=== PATIENT | male | born 1985 | race Hispanic/Latino ===

== ENCOUNTER 2023-02-04 14:20 | Inpatient (IN) | payer SELFPAY ==
[2023-02-04] VITALS (19 sets, daily range): BP systolic 117–165; BP diastolic 74–107; PULSE 116–145; RESP 18–31; TEMP 36.2–37.7; O2SAT 92–99; BMI 27.2; BMI 27.1
--- NOTE | 2023-02-04 14:25 | ED.VIS.GI ---
HPI HPI - GI History of Present Illness Chief Complaint: GI Bleed Detail of Chief Complaint: Upper GI bleed Informant: patient Narrative Narrative: Patient presents the emergency department with vomiting since last evening. Patient has vomited multiple times since then and has had blood. He complains of upper abdominal pain. He denies chest pain. He denies shortness of breath. He is never had this happen before. Patient speaks poor Uzbek. He is Iranian-speaking. No known allergies. Prior similar symptoms: No PFSH PFSH Medical History Alcohol abuse Non-smoker Medical History no medical history Home Medications NK 02/04/23 [History Last Taken Unknown] Allergy/AdvReac Type Severity Reaction Status Date / Time No Known Allergies Allergy Verified 02/04/23 14:23 Family History no significant family his Surgical History no surgical history Social History Smoking Status: Never smoker ROS ROS ED Review of Systems ROS Unobtainable: other Constitutional Constitutional ED: Reports lethargy; Denies chills, fever(s), sweats or weight loss Eyes Eyes: Denies blurry vision, change in vision or diplopia ENT ENT ED: Denies rhinorrhea or sore throat Cardiovascular Cardiovascular: Denies chest pain, orthopnea or racing heartbeat Respiratory/Chest Respiratory/Chest: Denies cough, dyspnea, dyspnea on exertion, orthopnea or sputum Gastrointestinal Gastrointestinal: Reports abdominal pain, nausea, vomiting and other Details: Hematemesis ; Denies diarrhea Genitourinary Genitourinary ED: Denies dysuria, hematuria or urinary frequency Musculoskeletal Musculoskeletal: Denies arthralgias, back pain, myalgias or neck pain Integumentary Denies abscess, Abrasions or rash Neurologic Neurologic: Denies headache(s) or weakness Psychiatric Psychiatric: Denies anxiety, depression or suicidal thoughts Endocrine Endocrinology: Denies polydipsia, polyphagia or polyuria Hematologic/Lymphatic Hematologic/Lymphatic: Denies easy bleeding, easy bruising or lymphadenopathy Allergic/Immunologic Allergic/Immunologic ED: Denies mouth swelling, tongue swelling or urticaria EXAM Physical Exam Const Vital Signs: 02/04/23 14:21 02/04/23 14:23 02/04/23 15:04 Temperature 97.2 F L 97.5 F L Temperature Source Temporal Temporal Pulse Rate 145 H 142 H 139 H Respiratory Rate 28 H 31 H 19 H Blood Pressure 159/95 H 159/95 H 134/107 H Blood Pressure Mean 116 116 116 Pulse Ox 98 98 97 Oxygen Delivery Method Room Air Room Air Room Air 02/04/23 15:26 Temperature Temperature Source Pulse Rate 135 H Respiratory Rate 20 H Blood Pressure 150/74 H Blood Pressure Mean 99 Pulse Ox 92 Oxygen Delivery Method Room Air Positive well nourished and well developed General Appearance ED: well developed and NAD HEENT Reports TM's clear and moist mucous membranes normocephalic and atraumatic; Negative for trauma or tenderness Tympanic Membrane ED: Yes TM's clear Eyes PERRL and EOMs intact bilaterally General Eye ED: Negative for pale conjunctiva or scleral icterus Neck no lymphadenopathy, supple and no JVD General: Negative for tenderness Chest Wall inspection of chest normal and palpation of chest normal Chest: Negative for tenderness Resp normal respiratory effort and clear to auscultation bilaterally Effort and Inspection: Negative for respiratory distress or pain with movement Auscultation: Negative for rhonchi, wheezes or diminished lung sounds Cardio regular rhythm, S1 normal heart sound, S2 normal heart sound and no murmurs Rate: tachycardic Peripheral Pulses: pulses 2+ throughout GI normal to inspection, nondistended, normoactive bowel sounds, soft to palpation, non-distended and no masses GI Narrative: Tenderness palpation over the epigastric region with guarding. There is no rebound, rigidity, or pedal signs. Back/Spine no CVA tenderness and no thoracic nor lumbar tenderness Extremity normal to inspection General Extremety ED: Negative for edema General Extremity: Negative for edema Neuro oriented x3, CN's II-XII intact bilaterally, no sensory deficits noted and gait normal Sensorium / Orientation: awake, alert, oriented to person, oriented to place and oriented to time Motor Exam: strength 5/5 throughout and strength abnormal Psych mental status grossly normal Skin no rashes or lesions noted and no wounds MDM MDM MDM Narrative Medical decision making narrative: Presents with hematemesis since yesterday. Clinically patient looks somewhat de leon and he is tachycardic. 2 large-bore IVs were established. We were able to use the iPad to talk to the patient via medical interpreter. Patient states that the vomiting started first and then the hematemesis. He has no history of stomach ulcers. He does not take frequent NSAIDs. Initially was told we do not have GI on-call. I discussed case with general surgeon on-call Dr. Mullen who recommended attempting to contact GI or transfer of the patient to another facility that he has GI coverage. We attempted to contact Dr. Stephens and I spoke with his nurse practitioner who did say that he was on-call for GI bleed complaints. Dr. Stephens will be available to see the patient. His initial hemoglobin is 9.6. I did order type and cross of 2 units packed red cells given clinically I feel he had significant blood loss. I did also order a CT scan of the abdomen and pelvis without contrast to evaluate further. After further discussion with Dr. Stephens he will take patient to endoscopy suite. CT results of abdomen pelvis pending however Dr. Stephens was able to evaluate the scan. We noted a enlarged liver but no other significant acute process. Official report from radiology pending. Patient case will be discussed with hospitalist to evaluate patient for admission Lab Data Labs: Laboratory Results - last 24 hr 02/04/23 02/04/23 02/04/23 14:23 14:23 14:23 WBC 16.2 H RBC 3.16 L Hgb 9.6 L Hct 29.7 L MCV 94.0 MCH 30.4 MCHC 32.3 RDW Std Deviation 51.8 H RDW Coeff of Jose 15.0 H Plt Count 187 MPV 11.6 Immature Gran % (Auto) 0.600 Neut % (Auto) 84.2 H Lymph % (Auto) 4.8 L Freestone % (Auto) 10.1 H Eos % (Auto) 0.0 Baso % (Auto) 0.3 Absolute Neuts (auto) 13.6 H Absolute Lymphs (auto) 0.78 L Nucleated RBC % 0 Differential Comment SCANNED Diff Path Review May foll PT INR Sodium 141 Potassium 3.6 Chloride 103 Carbon Dioxide 18.0 L Anion Gap 20 H BUN 19 H Creatinine 0.85 Estim Creat Clear Calc 98.67 Est GFR (MDRD) Af Amer 130 Est GFR (MDRD) Non-Af 107 BUN/Creatinine Ratio 22.4 H Glucose 266 H Lactic Acid 11.9 H* Calcium 8.5 Phosphorus Magnesium Total Bilirubin 1.30 H AST 106 H ALT 46 Alkaline Phosphatase 135 H Total Protein 7.3 Albumin 3.3 Globulin 4.0 Albumin/Globulin Ratio 0.8 L Lipase 25 Blood Type Antibody Screen Crossmatch 02/04/23 02/04/23 02/04/23 14:23 14:23 14:23 WBC RBC Hgb Hct MCV MCH MCHC RDW Std Deviation RDW Coeff of Jose Plt Count MPV Immature Gran % (Auto) Neut % (Auto) Lymph % (Auto) Freestone % (Auto) Eos % (Auto) Baso % (Auto) Absolute Neuts (auto) Absolute Lymphs (auto) Nucleated RBC % Differential Comment Diff Path Review PT 16.3 H INR 1.3 Sodium Potassium Chloride Carbon Dioxide Anion Gap BUN Creatinine Estim Creat Clear Calc Est GFR (MDRD) Af Amer Est GFR (MDRD) Non-Af BUN/Creatinine Ratio Glucose Lactic Acid Calcium Phosphorus 2.7 Magnesium 1.5 L Total Bilirubin AST ALT Alkaline Phosphatase Total Protein Albumin Globulin Albumin/Globulin Ratio Lipase Blood Type O POSITIVE Antibody Screen NEGATIVE Crossmatch See Detail Radiography Diagnostic Testing: Clinical Impression(s) from Imaging Studies Chest/Abdomen/Pelvis CT 02/04/23 15:28 IMPRESSION: Enlarged fatty infiltrated liver with other findings consistent with portal hypertension. No evidence for small bowel obstruction. Nonspecific thickening of the treviño of the rectum. No intraluminal contrast extravasation of IV contrast to suggest site for acute GI bleeding at this time. Radionuclide tagged red blood cell study would be helpful for further evaluation if clinically warranted Electronically Signed: Sundar Hernandez MD at 16:58 EDT Reading Location ID and State: [facility] / [place] , Service support , Critical Care Time Critical Care Time: Yes Critical care time (excluding procedures): 30-74 minutes, Discussing w/Patient &/or Family/Delivery Associate, Discussing w/Consultants, Arranging Admission or Transfer, Performing Direct Patient Care at Bedside and - (30 minutes) Discharge Plan Dx/Rx/DC Orders Clinical Impression: Acute upper GI bleeding, Anemia, Tachycardia Disposition Disposition: Acute Care [facility] Discharge Date/Time: 02/04/23 16:55
[2023-02-04] MEDS: Ondansetron 4 MG/2 ML Vial IV ×2 (14:33→19:56)
[2023-02-04] MEDS: 0.9% Normal Saline 1,000 ML 1000 ML IV (14:35)
[2023-02-04] MEDS: Morphine 4 MG/ML Syringe IV (14:35)
[2023-02-04 15:08] LABS: Absolute Lymphocyte Count 0.78 X10^3/uL (0.83-4.51); Absolute Neutrophil Count 13.6 X10^3/uL (2.0-7.7); Basophil# 0.05 X10^3/uL; Basophil% 0.3 % (0-1); Hematocrit 29.7 % (40-54); Hemoglobin 9.6 g/dL (13.0-16.5); Lymphocyte # 0.78 X10^3/ul (0.83-4.51); Lymphocyte % 4.8 % (19-41); Mean Corp Hgb Conc 32.3 g/dL (32-36); Mean Corpuscular Hgb 30.4 pg (27.0-32.0); Mean Platelet Vol. 11.6 fl (6.2-12.0); Monocyte# 1.64 X10^3/uL; Monocyte% 10.1 % (0-10); NRBC Flagged by Analyzer 0 % (0-5); Neutrophil # 13.64 X10^3/uL (2.7-7.7); Neutrophil % 84.2 % (47-70); POSITIVE DIFFERENTIAL YES; Platelet Count 187 K/mm3 (150-450); RBC Distribution Width SD 51.8 fl (35.1-43.9); Red Blood Count 3.16 M/mm3 (4.6-6.2); White Blood Count 16.2 K/mm3 (4.4-11.0)
[2023-02-04 15:09] LABS: Differential Indicated SCAN CRITERIA MET
--- NOTE | 2023-02-04 15:28 | CT_ITS ---
STUDY: CT CHEST, ABDOMEN T PELVIS WITH CONTRAST REASON FOR EXAM: Male, 37 years old. upper gi bleed RADIATION DOSAGE (If Supplied By Facility): CTDIvol = ( 14.79 ) mGy, DLP = ( 1311.36 ) mGycm TECHNIQUE: Transaxial imaging was performed following intravenous administration of IV 100mL Isovue-300. Individualized dose optimization techniques were used for this CT. COMPARISON: No relevant priors. FINDINGS: CHEST The lungs are normal. There is no demonstrated pleural abnormality. Normal heart and pericardium. Normal mediastinum. Normal hilar regions. Normal unenhanced pulmonary arteries. Normal aorta arch and descending thoracic aorta. Normal osseous structures. Moderate-sized hiatal hernia noted. ABDOMEN . Nonspecific fatty infiltrated liver without mass or bile duct dilatation.. Normal gallbladder and extrahepatic biliary system. Normal spleen. Normal pancreas. There is recanalization of the umbilical vein as well as mild gastroesophageal varices consistent with portal hypertension Normal bilateral adrenal glands. Normal right kidney. Normal left kidney. Normal visualized stomach. Normal small intestine. There is eccentric thickening of the treviño of the rectum of uncertain significance possibly due to chronic inflammatory disease as there is no appreciable stranding in the fat at this time. Neoplasm not entirely excluded No evidence for acute appendicitis. Normal abdominal aorta. Normal inferior vena cava. Normal retroperitoneum. Normal abdominal wall. Normal osseous structures. PELVIS Nonspecific markedly distended bladder.. There is no pelvic fluid. There is no pelvic lymphadenopathy or mass lesion. Normal visualized pelvic arteries. Normal abdominal wall. Normal osseous structures. CT/CT Chest, Abd, Pel w/Contrast IMPRESSION: Enlarged fatty infiltrated liver with other findings consistent with portal hypertension. No evidence for small bowel obstruction. Nonspecific thickening of the treviño of the rectum. No intraluminal contrast extravasation of IV contrast to suggest site for acute GI bleeding at this time. Radionuclide tagged red blood cell study would be helpful for further evaluation if clinically warranted Electronically Signed: Sundar Hernandez MD at 16:58 EDT ,
[2023-02-04 15:31] LABS: ALB/GLOB Ratio 0.8 RATIO (0.9-2.4); AST(SGOT) 106 U/L (15-37); Alanine Aminotransfer ALT/SGPT 46 U/L (16-61); Albumin, Serum 3.3 g/dL (3.2-5.0); Alkaline Phosphatase 135 U/L (45-117); Anion Gap 20 (5-15); BUN 19 mg/dL (7-18); BUN/Creat Ratio 22.4 RATIO (10-20); Calcium,Total 8.5 mg/dL (8.5-10.1); Chloride 103 mmol/L (98-107); Creatinine, Serum 0.85 mg/dL (0.70-1.30); EST Glomerular Filtration Rate 107 mL/min (>60); Est Glom Filt Rate - Afr Amer 130 mL/min (>60); Estimated Creatinine Clearance 98.67 ml/min; Glucose 266 mg/dL (74-106); Lipase 25 U/L (13-75); Potassium 3.6 mmol/L (3.5-5.1); Protein, Total 7.3 g/dL (6.4-8.2); Sodium Level 141 mmol/L (136-145)
[2023-02-04 15:50] LABS: Differential Comment SCANNED
[2023-02-04 15:58] LABS: Lactic Acid 11.9 mmol/L (0.4-1.9)
[2023-02-04 16:39] LABS: International Normalized Ratio 1.3; Prothrombin Time (Protime)PT. 16.3 SECONDS (11.7-14.9)
--- NOTE | 2023-02-04 16:57 | HP.PCM.HOS_ITS ---
[facility] - General General Date of Admission: 02/04/23 Date of Service: 02/04/23 Chief Complaint: Vomiting blood since yesterday morning. HPI Narrative WONG RUSSELL, is a 37 M history of chronic alcohol use Today for vomiting blood since yesterday morning. Patient stated he vomited about 24 times since yesterday morning, moderate amount coffee-ground. History is limited as he speaks Paraguayan and also he is in pain and distress because of abdominal pain. He states he has been drinking for last 2 days tequila and vodka. Usually he drinks 3-4 times a week about 3-4 beers. He describes abdominal pain moderate 7-8/10 intensity localized mainly in epigastric and left upper quadrant and lateral region with mild distention. He feels retrosternal burning kind of pain. Abdominal pain was insidious in onset, started yesterday and got worse today. No fever. In ED, patient was tachycardic heart rate 145/min, BP 159/95, tachypneic r espiratory rate 28 but no hypoxia. Initial H&H in ED shows hemoglobin 9.6, hematocrit 30 with leukocytosis and platelet count 187,000. 2 units of PRBC type and crossmatch. Patient was recently taken to endoscopy suite from ED. [facility] Medical History Alcohol abuse Non-smoker Medical History no medical history Home Medications NK 02/04/23 [History Last Taken Unknown] Allergy/AdvReac Type Severity Reaction Status Date / Time No Known Allergies Allergy Verified 02/04/23 14:23 Family History no significant family his Surgical History no surgical history Social History Smoking Status: Never smoker ROS ROS Narrative Constitutional: Reports fatigue and weakness and pain. No fever. HEENT: Reports systems reviewed and no addt'l complaints, except as documented Respiratory/Chest: Mild shortness of breath due to pain CVS: Denies history of cardiac disease. No chest pain. Gastrointestinal: As described in HPI Genitourinary: Denies burning urination or new urinary tract symptoms Musculoskeletal: Denies acute joint pain or limited range of motion. No acute i njury Neurologic: Denies seizure-like symptoms. skin: No ulcer. No rash Endocrinology: Reports systems reviewed and no addt'l complaints, except as documented Hematologic/Lymphatic: Reports systems reviewed and no addt'l complaints, except as documented Rest 14 ROS are negative except as mentioned in HPI Vital Signs Vital Signs Vital Signs: 02/04/23 14:21 02/04/23 14:23 02/04/23 15:04 Temperature 97.2 F L 97.5 F L Temperature Source Temporal Temporal Pulse Rate 145 H 142 H 139 H Respiratory Rate 28 H 31 H 19 H Blood Pressure 159/95 H 159/95 H 134/107 H Blood Pressure Mean 116 116 116 Pulse Ox 98 98 97 Oxygen Delivery Method Room Air Room Air Room Air 02/04/23 15:26 Temperature Temperature Source Pulse Rate 135 H Respiratory Rate 20 H Blood Pressure 150/74 H Blood Pressure Mean 99 Pulse Ox 92 Oxygen Delivery Method Room Air Weight Weight: 158 lb 11.725 oz Body Mass Index (BMI) 27.2 Physical Exam Narrative General: Awake, alert in moderate distress due to pain. HEENT: Atraumatic, PERRLA, EOMI, Normocephalic Oral: Oral mucosa dry. No Gingival or Mucosal Lesions/ Ulcerations Neck: Supple, No JVD, Negative Carotid Bruits Lungs: Air entry diminished in bilateral lung bases. No crepitation/rhonchi Cardiovascular: Sinus tachycardia, normal S1, Normal S2, No murmurs Abdomen: Soft, mild distention. Tenderness present in epigastric and left upper quadrant. Bowel sounds sluggish. Hematemesis. : Urine dark color. No renal angle tenderness. No suprapubic tenderness. Extremities: No edema, Capillary Refill Less than 3 Seconds Skin: No rashes, No breakdown Musculoskeletal: No Tenderness to Palpation of Joints or Extremities. ROM full. Neurological: Cranial nerves II-XII grossly intact, DTR 2+/4, no acute neurodeficit Psych/Mental Status: Flat affect. In moderate distress. Restless. Results Lab / Micro Data Result Diagrams: 02/04/23 14:23 02/04/23 14:23 Labs: Laboratory Results - last 24 hr 02/04/23 14:23: WBC 16.2 H, RBC 3.16 L, Hgb 9.6 L, Hct 29.7 L, MCV 94.0, MCH 30.4, MCHC 32.3, RDW Std Deviation 51.8 H, RDW Coeff of Jose 15.0 H, Plt Count 187, MPV 11.6, Immature Gran % (Auto) 0.600, Neut % (Auto) 84.2 H, Lymph % (Auto) 4.8 L, Ida % (Auto) 10.1 H, Eos % (Auto) 0.0, Baso % (Auto) 0.3, Absolute Neuts (auto) 13.6 H, Absolute Lymphs (auto) 0.78 L, Nucleated RBC % 0, Differential Comment SCANNED, Diff Path Review January02/04/23 14:23: Sodium 141, Potassium 3.6, Chloride 103, Carbon Dioxide 18.0 L, Anion Gap 20 H, BUN 19 H, Creatinine 0.85, Estim Creat Clear Calc 98.67, Est GFR (MDRD) Af Amer 130, Est GFR (MDRD) Non-Af 107, BUN/Creatinine Ratio 22.4 H, Glucose 266 H, Calcium 8.5, Total Bilirubin 1.30 H, AST 106 H, ALT 46, Alkaline Phosphatase 135 H, Total Protein 7.3, Albumin 3.3, Globulin 4.0, Albumin/Globulin Ratio 0.8 L, Lipase 25 02/04/23 14:23: Lactic Acid 11.9 H* 02/04/23 14:23: Blood Type O POSITIVE, Antibody Screen NEGATIVE, Crossmatch See Detail 02/04/23 14:23: PT 16.3 H, INR 1.3 Assessment & Plan Assessment/Plan (1) Acute upper GI bleeding: PLAN: Plan This is a 37-year-old gentleman being admitted for severe acute upper GI bleed. 1. Acute active upper GI bleed Due to esophageal varices: Patient was vigorously resuscitation in ED and then taken to endoscopy suite. GI consulted. Patient had EGD which shows bleeding grade 2 esophageal varices, incompletely eradicated; banded. Red blood in the stomach. Normal duodenal bulb. In PCU patient was tachycardic with nausea. 2 units of PRBC has been typed and crossmatched. Patient undergoing first unit of PRBC transfusion. 1 L of Ringer lactate bolus. Patient on IV Protonix drip, IV octreotide drip. After completion of Ringer lactate bolus, normal saline +20 mEq IV KCl. Lactic acidosis 11.9. 2. Acute anemia due to blood loss: H&H every 6 hourly. CBC daily. Try to keep hemoglobin above 8 g%. Rest as mentioned above. 3. Chronic alcohol use with alcoholic hepatitis, most probably acute on chronic with portal hypertension: Right upper quadrant sonogram ordered for tomorrow AM. Liver chemistry shows AST ALT ratio more than 2:1. Alkaline phosphatase check 135. TB 1.3. A/G ratio 0.8. Lipase 25. Patient on IV ceftriaxone as prophylaxis for SBP. 4. Hypomagnesemia: Magnesium sulfate 2 g ordered. Serum phosphorus normal. 5. VTE prophylaxis, low risk: Bilateral SCDs. Pharmacological prophylaxis contraindicated. Laboratory Results 02/04/23 14:23: WBC 16.2 H, RBC 3.16 L, Hgb 9.6 L, Hct 29.7 L, MCV 94.0, MCH 3 0.4, MCHC 32.3, RDW Std Deviation 51.8 H, RDW Coeff of Jose 15.0 H, Plt Count 187, MPV 11.6, Immature Gran % (Auto) 0.600, Neut % (Auto) 84.2 H, Lymph % (Auto) 4.8 L, Ida % (Auto) 10.1 H, Eos % (Auto) 0.0, Baso % (Auto) 0.3, Absolute Neuts (auto) 13.6 H, Absolute Lymphs (auto) 0.78 L, Nucleated RBC % 0, Differential Comment SCANNED, Diff Path Review January02/04/23 14:23: Sodium 141, Potassium 3.6, Chloride 103, Carbon Dioxide 18.0 L, Anion Gap 20 H, BUN 19 H, Creatinine 0.85, Estim Creat Clear Calc 98.67, Est GFR (MDRD) Af Amer 130, Est GFR (MDRD) Non-Af 107, BUN/Creatinine Ratio 22.4 H, Glucose 266 H, Calcium 8.5, Total Bilirubin 1.30 H, AST 106 H, ALT 46, Alkaline Phosphatase 135 H, Total Protein 7.3, Albumin 3.3, Globulin 4.0, Albumin/Globulin Ratio 0.8 L, Lipase 25 02/04/23 14:23: Lactic Acid 11.9 H* 02/04/23 14:23: Blood Type O POSITIVE, Antibody Screen NEGATIVE, Crossmatch See Detail 02/04/23 14:23: PT 16.3 H, INR 1.3 02/04/23 14:23: Phosphorus 2.7, Magnesium 1.5 L Charges/Coding Visit Charges Inpatient E&M: 58592 Init Hosp L3
--- NOTE | 2023-02-04 17:00 | EX.PCM.CON.G ---
HPI Consult Data Date of Consult: 02/04/23 HPI Narrative Reason for Consultation: Upper GI bleed HPI Narrative: WONG RUSSELL, is a 37 M who presents to the emergency department with vomiting since last evening.? Patient has vomited multiple times since then and has had blood.? He complains of upper abdominal pain.? He denies chest pain.? He denies shortness of breath.? He is never had this happen before.? Patient speaks poor Zimbabwean.? He is Guyanese-speaking.? No known allergies. In ED he was afebrile but tachycardic and hypertensive. His hemoglobin was 9.6. Baseline hemoglobin is 15. His platelet count was 293. His PTT was 16.3 with INR 1.3. His LFTs Total Bilirubin 1.30 H, AST 106 H, ALT 46, Alkaline Phosphatase 135 H, Total Protein 7.3, Albumin 3.3, Globulin 4.0, Albumin/Globulin Ratio 0.8 L, Lipase 25, Lactic Acid 11.9 H* CT scan abdomen pelvis showed hepatomegaly with portal hypertension. He says he only drinks occasionally. No history of hepatitis C or hepatitis B. No family members with liver disease. No family members with liver cancer. [facility] Medical History no medical history Home Medications NK 02/04/23 [History Last Taken Unknown] Allergy/AdvReac Type Severity Reaction Status Date / Time No Known Allergies Allergy Verified 02/04/23 14:23 Family History no significant family his Surgical History no surgical history Social History Smoking Status: Never smoker ROS Review of Systems ROS Unobtainable: other Constitutional Constitutional: Denies fatigue, fever(s), poor appetite, weight gain or weight loss ENT HEENT: Denies mouth lesions Cardiovascular Cardiovascular: Denies abdominal bloating, abdominal edema or abdominal pain Respiratory/Chest Respiratory/Chest: Denies change in mental status, change in phlegm color, chest congestion or chest tightness Gastrointestinal Gastrointestinal: Denies belching, bloating, change in bowel habits, change in stool character, chewing difficulty, coffee ground emesis, constipation, cramping, diarrhea, dyspepsia, dysphagia, early satiety, excessive flatus, fecal incontinence, heartburn, hematemesis, hematochezia, hemorrhoids, loose stools, melena, nausea, odynophagia, rectal bleeding, tenesmus, vomiting or weight changes Genitourinary Genitourinary: Denies abdominal discomfort, burning urination or itching Musculoskeletal Musculoskeletal: Reports as per HPI; Denies muscle weakness or myalgias Integumentary Integumentary: Denies jaundice Neurologic Neurologic: Denies lack of coordination or weakness Psychiatric Psychiatric: Denies confusion, depression, memory loss, mood swings, paranoia or suicidal ideation Endocrine Endocrinology: Denies systems reviewed and no addt'l complaints, except as documented Hematologic/Lymphatic Hematologic/Lymphatic: Denies anemia, easy bleeding, easy bruising or lymphadenopathy Allergic/Immunologic Allergic/Immunologic: Denies systems reviewed and no addt'l complaints, except as documented Physical Exam Const alert General Appearance: cooperative Orientation / Consciousness: oriented to person HEENT hearing grossly normal bilaterally Head and Scalp: normal to inspection Face and Sinus: face symmetric Nose: external nose normal Mouth: oral and palatal mucosa normal Eyes conjunctivae normal General Eye: normal appearance of both eyes Neck full ROM General: normal visual inspection Lymph Lymphatic: no lymphadenopathy noted Chest inspection of chest normal and palpation of chest normal Chest: symmetrical chest wall rise Resp normal respiratory effort Effort and Inspection: able to speak in complete sentences Cardio regular rate GI non-distended Percussion: normal to percussion Rectal Exam: deferred Neuro Speech: speech normal Gait (Neuro): normal gait Lab / Micro Data Result Diagrams: 02/04/23 14:23 02/04/23 14:23 Labs: Laboratory Results - last 24 hr 02/04/23 14:23: WBC 16.2 H, RBC 3.16 L, Hgb 9.6 L, Hct 29.7 L, MCV 94.0, MCH 30.4, MCHC 32.3, RDW Std Deviation 51.8 H, RDW Coeff of Jose 15.0 H, Plt Count 187, MPV 11.6, Immature Gran % (Auto) 0.600, Neut % (Auto) 84.2 H, Lymph % (Auto) 4.8 L, [place] % (Auto) 10.1 H, Eos % (Auto) 0.0, Baso % (Auto) 0.3, Absolute Neuts (auto) 13.6 H, Absolute Lymphs (auto) 0.78 L, Nucleated RBC % 0, Differential Comment SCANNED, Diff Path Review January02/04/23 14:23: Sodium 141, Potassium 3.6, Chloride 103, Carbon Dioxide 18.0 L, Anion Gap 20 H, BUN 19 H, Creatinine 0.85, Estim Creat Clear Calc 98.67, Est GFR (MDRD) Af Amer 130, Est GFR (MDRD) Non-Af 107, BUN/Creatinine Ratio 22.4 H, Glucose 266 H, Calcium 8.5, Total Bilirubin 1.30 H, AST 106 H, ALT 46, Alkaline Phosphatase 135 H, Total Protein 7.3, Albumin 3.3, Globulin 4.0, Albumin/Globulin Ratio 0.8 L, Lipase 25 02/04/23 14:23: Lactic Acid 11.9 H* 02/04/23 14:23: Blood Type O POSITIVE, Antibody Screen NEGATIVE, Crossmatch See Detail 02/04/23 14:23: PT 16.3 H, INR 1.3 Radiology Impression Chest/Abdomen/Pelvis CT 02/04/23 15:28 IMPRESSION: Enlarged fatty infiltrated liver with other findings consistent with portal hypertension. No evidence for small bowel obstruction. Nonspecific thickening of the treviño of the rectum. No intraluminal contrast extravasation of IV contrast to suggest site for acute GI bleeding at this time. Radionuclide tagged red blood cell study would be helpful for further evaluation if clinically warranted Electronically Signed: Sundar Hernandez MD at 16:58 EDT , Assessment & Plan Assessment/Plan (1) Acute upper GI bleeding: PLAN: The differential diagnosis for upper GI bleed does include acute variceal bleed, Magda-Puri tear, telangiectasia, erosive esophagitis, peptic ulcer disease. He should undergo an emergent EGD due to increase in vomiting and significant lactic acidosis. We will start PPI drip and octreotide. I will also need ceftriaxone 1 g. He was explained alternatives, risk, benefits including outstanding bleeding, infection, sepsis, perforation, need for emergent surgery . He will have an ASA of 3. Charges/Coding Visit Charges Inpatient E&M: 18099 Init Hosp L3
--- NOTE | 2023-02-04 18:04 | OP.EGD_ITS ---
Patient Name: Iglesia Adams Procedure Date: 02/04/2023 5:17 PM Date of : 1985 Age: 37 Procedure: Upper GI endoscopy Indications: Hematemesis Providers: Regis Stephens DO Medicines: Monitored Anesthesia Care Patient Profile: This is a 37 year old male. Refer to note in patient chart for documentation of history and physical. Patient has symptoms of acute vomiting. Complications: No immediate complications. Procedure: Pre-Anesthesia Assessment: - Prior to the procedure, a History and Physical was performed, and patient medications and allergies were reviewed. The patient is competent. The risks and benefits of the procedure and the sedation options and risks were discussed with the patient. All questions were answered and informed consent was obtained. Patient identification and proposed procedure were verified by the physician in the pre-procedure area. Mental Status Examination: alert and oriented. Airway Examination: normal oropharyngeal airway and neck mobility. Respiratory Examination: clear to auscultation. CV Examination: normal. Prophylactic Antibiotics: The patient does not require prophylactic antibiotics. Prior Anticoagulants: The patient has taken no previous anticoagulant or antiplatelet agents. After reviewing the risks and benefits, the patient was deemed in satisfactory condition to undergo the procedure. The anesthesia plan was to use monitored anesthesia care (MAC). Immediately prior to administration of medications, the patient was re-assessed for adequacy to receive sedatives. The heart rate, respiratory rate, oxygen saturations, blood pressure, adequacy of pulmonary ventilation, and response to care were monitored throughout the procedure. The physical status of the patient was re-assessed after the procedure. After obtaining informed consent, the endoscope was passed under direct vision. Throughout the procedure, the patient's blood pressure, pulse, and oxygen saturations were monitored continuously. The Endoscope was introduced through the mouth, and advanced to the second part of duodenum. The upper GI endoscopy was accomplished without difficulty. The patient tolerated the procedure well. Scope In: 5:29:56 PM Scope Out: 6:01:28 PM Total Procedure Duration Time 0 hours 31 minutes 32 seconds Findings: Four columns of spurting grade II varices were found in the middle third of the esophagus and in the lower third of the esophagus, 26 cm from the incisors. They were 20 mm in largest diameter. Stigmata of recent bleeding were evident and red heena signs were present. Two bands were successfully placed with incomplete eradication of varices. Bleeding had stopped at the end of the procedure. Red blood was found in the entire examined stomach. The duodenal bulb was normal. Impression: - Bleeding grade II esophageal varices. Incompletely eradicated. Banded. - Red blood in the entire stomach. - Normal duodenal bulb. - No specimens collected. Recommendation: - [facility]. - NPO. - Continue present medications. Procedure Code(s): --- Professional --- 69476, Esophagogastroduodenoscopy, flexible, transoral; with band ligation of esophageal/gastric varices CPT copyright 2017 [employer]. All rights reserved. The codes documented in this report are preliminary and upon senior network systems engineer review may be revised to meet current compliance requirements. Regis Stephens DO 02/04/2023 6:03:30 PM This report has been signed electronically. Number of Addenda: 0 Note Initiated On: 02/04/2023 5:17 PM
--- NOTE | 2023-02-04 18:04 | OP.CCLET_ITS ---
02/04/2023 No Primary Care Physician Re : Upper GI endoscopy procedure for Iglesia Adams Dear Care Physician This procedure was performed on Saturday, February 04, 2023. My impressions and recommendations are as follows: Impressions : - Bleeding grade II esophageal varices. Incompletely eradicated. Banded. - Red blood in the entire stomach. - Normal duodenal bulb. - No specimens collected. Recommendations : - [facility] patient to [facility] for [facility] care. - NPO. - Continue present medications. My findings are described in the full procedure note, which is enclosed. If I can be of further assistance, please feel free to contact me at . Sincerely, Regis Stephens, 02/04/2023 6:03:30 PM This report has been signed electronically.
[2023-02-04 19:01] LABS: Reflex Lactate? Y
[2023-02-04] MEDS: KCL 20MEQ in 0.9% NS 20 MEQ/1,000 ML IV.SOLN. 75 MEQ IV (19:56)
[2023-02-04] MEDS: 0.9% Saline Lock 10 ML Syringe IV (20:02)
[2023-02-04] MEDS: Lactated Ringers 1,000 ML 999 ML IV (20:17)
[2023-02-04 20:27] LABS: Magnesium 1.5 mg/dL (1.6-2.6); Phosphorus 2.7 mg/dL (2.5-4.9)
[2023-02-04 21:41] LABS: Lactic Acid 5.3 mmol/L (0.4-1.9)
[2023-02-04] MEDS: Ceftriaxone 1 GM/50 ML BAG IV (22:23)
[2023-02-04 22:58] LABS: Hematocrit 30.5 % (40-54)
[2023-02-05] VITALS (10 sets, daily range): BP systolic 112–132; BP diastolic 74–94; PULSE 96–113; RESP 16–20; TEMP 36.4–37.2; O2SAT 96–100
[2023-02-05 02:00] LABS: Hematocrit 30.4 % (40-54); Hemoglobin 10.1 g/dL (13.0-16.5)
--- NOTE | 2023-02-05 05:55 | US_ITS ---
INDICATION: Alcoholic hepatitis, portal hypertension GI bleed. EXAMINATION: Ultrasound US Abdomen RUQ (limited) TECHNIQUE: Keating scale and color doppler imaging was performed of the right upper quadrant. COMPARISON: CT chest/abdomen/pelvis study from yesterday. FINDINGS: Pancreas: The visualized head, body, and proximal tail are within normal limits. No duct dilation. Liver: 18.3 cm in length and borderline enlarged. Diffuse increased parenchymal echogenicity compatible with fatty infiltration. No parenchymal lesions in the visualized liver. Slightly nodular contour suggestive of cirrhosis. No intrahepatic bile duct dilation. Normal hepatopedal flow. A recanalized umbilical vein is noted. Gallbladder: Normal appearance with no intraluminal sludge or gallstones. No pericholecystic fluid or wall thickening. Negative sonographic Tejada sign. Common bile duct: 2.8 mm and within normal limits. Right kidney: 11.5 x 6.0 x 4.9 cm. Normal size and appearance. US/Abdomen Limited IMPRESSION: 1. No acute findings. 2. Cirrhosis, diffuse hepatic steatosis, and borderline hepatomegaly. Electronically Signed: Familia Gustafson MD at 12:34 EDT ,
[2023-02-05 07:18] LABS: Absolute Lymphocyte Count 1.63 X10^3/uL (0.83-4.51); Absolute Neutrophil Count 7.3 X10^3/uL (2.0-7.7); Basophil# 0.04 X10^3/uL; Basophil% 0.4 % (0-1); Eosinophil# 0.01 X10^3/uL; Eosinophils% 0.1 % (0-5); Hemoglobin 9.5 g/dL (13.0-16.5); Lymphocyte # 1.63 X10^3/ul (0.83-4.51); Lymphocyte % 15.8 % (19-41); Mean Corp Hgb Conc 32.8 g/dL (32-36); Mean Corpuscular Volume 91.5 fL (80-94); Mean Platelet Vol. 11.6 fl (6.2-12.0); Monocyte# 1.28 X10^3/uL; Monocyte% 12.4 % (0-10); NRBC Flagged by Analyzer 0 % (0-5); Neutrophil # 7.31 X10^3/uL (2.7-7.7); Neutrophil % 70.9 % (47-70); POSITIVE COUNT YES; Platelet Count 77 K/mm3 (150-450); RBC Distribution Width CV 14.6 % (11.6-14.6); RBC Distribution Width SD 48.4 fl (35.1-43.9); Red Blood Count 3.17 M/mm3 (4.6-6.2); White Blood Count 10.3 K/mm3 (4.4-11.0)
[2023-02-05 07:19] LABS: Differential Indicated SCAN CRITERIA MET
[2023-02-05 07:58] LABS: Platelet Estimate MOD DEC (ADEQ)
[2023-02-05 08:13] LABS: ALB/GLOB Ratio 0.8 RATIO (0.9-2.4); AST(SGOT) 88 U/L (15-37); Alanine Aminotransfer ALT/SGPT 34 U/L (16-61); Albumin, Serum 2.9 g/dL (3.2-5.0); Alkaline Phosphatase 99 U/L (45-117); Anion Gap 7 (5-15); BUN 14 mg/dL (7-18); BUN/Creat Ratio 27.1 RATIO (10-20); Calcium,Total 7.9 mg/dL (8.5-10.1); Chloride 109 mmol/L (98-107); Creatinine, Serum 0.52 mg/dL (0.70-1.30); EST Glomerular Filtration Rate 190 mL/min (>60); Est Glom Filt Rate - Afr Amer 230 mL/min (>60); Estimated Creatinine Clearance 161.28 ml/min; Globulin 3.5 g/dL (2.2-4.2); Glucose 126 mg/dL (74-106); Potassium 3.7 mmol/L (3.5-5.1); Protein, Total 6.4 g/dL (6.4-8.2); Sodium Level 142 mmol/L (136-145)
--- NOTE | 2023-02-05 10:31 | PN.HOSP_ITS ---
Reason for Visit Reason for Visit: Diagnoses Gastrointestinal hemorrhage, unspecified (02/04/23) Subjective Subjective Had US and per pts RN he was somewhat shaky and diaphoretic after. Appears to be improving. Reports feeling slightly shaky and and some epigastric abd pain Objective Data Objective Data Vital Signs: Vital Signs Temp Pulse Resp BP Pulse Ox O2 Del Method 97.9 F 100 20 H 126/94 H 96 Room Air 02/05/23 08:39 02/05/23 08:39 02/05/23 08:39 02/05/23 08:39 02/05/23 08:39 02/05/23 08:39 Oxygen Delivery Method Room Air Weight: 71.7 kg Body Mass Index (BMI) 27.1 Intake & Output: Intake and Output for Last 24 Hours 02/03/23 02/04/23 02/05/23 23:59 23:59 23:59 Intake Total 2851.25 / 2851.25 204 / 204 Output Total 1550 / 1550 Balance 2851.25 / 2851.25 -1346 / -1346 Lab / Micro Data Result Diagrams: 02/05/23 06:35 02/05/23 06:35 Labs: Laboratory Results - last 24 hr 02/04/23 14:23: WBC 16.2 H, RBC 3.16 L, Hgb 9.6 L, Hct 29.7 L, MCV 94.0, MCH 30.4, MCHC 32.3, RDW Std Deviation 51.8 H, RDW Coeff of Jose 15.0 H, Plt Count 187, MPV 11.6, Immature Gran % (Auto) 0.600, Neut % (Auto) 84.2 H, Lymph % (Auto) 4.8 L, [place] % (Auto) 10.1 H, Eos % (Auto) 0.0, Baso % (Auto) 0.3, Absolute Neuts (auto) 13.6 H, Absolute Lymphs (auto) 0.78 L, Nucleated RBC % 0, Differential Comment SCANNED, Diff Path Review January02/04/23 14:23: Sodium 141, Potassium 3.6, Chloride 103, Carbon Dioxide 18.0 L, Anion Gap 20 H, BUN 19 H, Creatinine 0.85, Estim Creat Clear Calc 98.67, Est GFR (MDRD) Af Amer 130, Est GFR (MDRD) Non-Af 107, BUN/Creatinine Ratio 22.4 H, Glu cose 266 H, Calcium 8.5, Total Bilirubin 1.30 H, AST 106 H, ALT 46, Alkaline Phosphatase 135 H, Total Protein 7.3, Albumin 3.3, Globulin 4.0, Albumin/Globulin Ratio 0.8 L, Lipase 25 02/04/23 14:23: Lactic Acid 11.9 H* 02/04/23 14:23: Blood Type O POSITIVE, Antibody Screen NEGATIVE, Crossmatch See Detail 02/04/23 14:23: PT 16.3 H, INR 1.3 02/04/23 14:23: Phosphorus 2.7, Magnesium 1.5 L 02/04/23 20:35: Lactic Acid 5.3 H* 02/04/23 22:35: Hgb 10.0 L, Hct 30.5 L 02/05/23 01:53: Hgb 10.1 L, Hct 30.4 L 02/05/23 06:35: WBC 10.3, RBC 3.17 L, Hgb 9.5 L, Hct 29.0 L, MCV 91.5, MCH 30.0, MCHC 32.8, RDW Std Deviation 48.4 H, RDW Coeff of Jose 14.6, Plt Count 77 L, MPV 11.6, Immature Gran % (Auto) 0.400, Neut % (Auto) 70.9 H, Lymph % (Auto) 15.8 L, [place] % (Auto) 12.4 H, Eos % (Auto) 0.1, Baso % (Auto) 0.4, Absolute Neuts (auto) 7.3, Absolute Lymphs (auto) 1.63, Nucleated RBC % 0, Platelet Estimate MOD 02/05/23 06:35: Sodium 142, Potassium 3.7, Chloride 109 H, Carbon Dioxide 26.0, Anion Gap 7, BUN 14, Creatinine 0.52 L, Estim Creat Clear Calc 161.28, Est GFR (MDRD) Af Amer 230, Est GFR (MDRD) Non-Af 190, BUN/Creatinine Ratio 27.1 H, Glu cose 126 H, Calcium 7.9 L, Total Bilirubin 1.10 H, AST 88 H, ALT 34, Alkaline Phosphatase 99, Total Protein 6.4, Albumin 2.9 L, Globulin 3.5, Albumin/Globulin Ratio 0.8 L Radiography Diagnostic Testing: Radiology Impression Chest/Abdomen/Pelvis CT 02/04/23 15:28 IMPRESSION: Enlarged fatty infiltrated liver with other findings consistent with portal hypertension. No evidence for small bowel obstruction. Nonspecific thickening of the treviño of the rectum. No intraluminal contrast extravasation of IV contrast to suggest site for acute GI bleeding at this time. Radionuclide tagged red blood cell study would be helpful for further evaluation if clinically warranted Electronically Signed: Sundar Hernandez MD at 16:58 EDT Reading Location ID and State: [facility] / [place] , Service support , Physical Exam Narrative General: Alert, appears slightly uncomfortable HEENT: Atraumatic, normocephalic Eyes: Anicteric, normal conjunctiva, extraocular movements grossly intact Neck: Supple Respiratory: Clear to auscultation bilaterally, normal respiratory effort Cardiovascular: Regular rate and rhythm GI: Soft, tender in the epigastric region Extremities: No edema Musculoskeletal: Moving all extremities Neuro: No overt focal neurological deficits Skin: No rashes appreciated Psych: Cooperative Assessment & Plan Assessment/Plan (1) Acute upper GI bleeding: PLAN: Plan #Acute active upper GI bleed secondary to bleeding grade 2 esophageal varices status post banding -Had EGD 02/04/2023 that showed bleeding grade 2 esophageal varices which were in completely eradicated. Banding. There was red blood in the stomach at that time. -Discussed with GI, transitioned PPI to twice daily and DC'd octreotide drip -We will be very important that he has nadolol/variceal prophylaxis on an outpatient basis and will need to repeat EGDs and follow-up with GI -Continue to monitor CBC #Liver cirrhosis -Seen on abdominal ultrasound, report 02/05: cirrhosis, diffuse hepatic steatosis, borderline hepatomegaly -We will check hepatitis panel -We will obtain INR to assess and calculating relevant scores -Strongly advised alcohol cessation moving forward -GI following #DVT ppx: SCDs Evelyn Hernández MD Time spent in the patient's overall evaluation,decision-making process, review of diagnostic data, adjustment of management, discussion with other providers, nursing nursing and ancillary staff involved in patient's care documentation, 40 minutes Charges/Coding Visit Charges Inpatient E&M: [address] [facility] Hosp L3
[2023-02-05 12:06] LABS: Pathologist Review Reviewed
[2023-02-05] MEDS: KCL 20MEQ in 0.9% NS 20 MEQ/1,000 ML IV.SOLN. 75 MEQ IV (12:14)
--- NOTE | 2023-02-05 14:40 | CASEMGMT ---
INDIRA OLSEN DC Planning Assessment: Face to Face with patient for initial transition planning/care coordination assessment. Pt alert. Noted pt to speak Persian as primary language, so sole cutter iPad used. graduate rn introduced himself and introduced this INDIRA OLSEN introduced self and role at [facility], pt voiced understanding. Care providers, pharmacy, and demographics verified. During discussion, the sole cutter noted pt to be having difficulty answering some questions appropriately. Through further dialogue between the sole cutter and pt, it was determined that pt's primary language is [place]' which is a Mayan language of [facility]. There is not an sole cutter for this language so the graduate rn facilitated the assessment as much as able. Admitting Dx: GI bleed/esophageal varices PCP: none Specialists: none Preferred Pharmacy: none Insurance: none Prescription Benefit: none LNOK/contact: Pt unable to state a contact lens cutter. 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 Pt works and is independent with ADLs. Transportation: Pt states he has someone who can pick him up at discharge Plan: Pt plans to return home at discharge. States he does not have anyone to assist him if needed at home. INDIRA OLSEN Interventions: Provided pt with list of PCP's and explained through sole cutter that pt will require ongoing care after discharge. Pt asked if this was necessary as he felt he would be ok at discharge. Explained that he will require ongoing care to manage his health and prevent future episodes of bleeding. Pt expressed understanding. Discussed pt's needs with INDIRA Castro and MALIKA Robles for further follow-up on discharge needs as they are identified. Debbie Webber RN CM
[2023-02-05 17:59] LABS: Hemoglobin 9.4 g/dL (13.0-16.5)
--- NOTE | 2023-02-05 18:03 | PCM.PROGNOTE ---
Subjective Subjective Patient underwent an emergent endoscopy yesterday for an acute GI bleed and was discovered to have esophageal varices. It was treated endoscopically and he has been maintained on PPI drip and octreotide drip. He is also begin ceftriaxone for variceal bleed. He denies any black stools. He does have some abdominal pain as he points to his upper abdomen. I cannot communicate completely with him due to inability to speak his language and him to fully understand Malaysian. Objective Data Objective Data Vital Signs: Vital Signs Temp Pulse Resp BP Pulse Ox O2 Del Method 98.7 F 102 H 16 112/77 96 Room Air 02/05/23 14:00 02/05/23 14:00 02/05/23 14:00 02/05/23 14:00 02/05/23 14:00 02/05/23 14:00 Oxygen Delivery Method Room Air Weight: 158 lb 1.143 oz Body Mass Index (BMI) 27.1 Intake & Output: Intake and Output for Last 24 Hours 02/03/23 02/04/23 02/05/23 23:59 23:59 23:59 Intake Total 2851.25 / 2851.25 1552.88 / 1552.88 Output Total 1999 Balance 2851.25 / 2851.25 -447.12 / -447.12 Lab / Micro Data Result Diagrams: 02/05/23 17:48 02/05/23 06:35 Labs: Laboratory Results - last 24 hr 02/04/23 14:23: Diff Path Review Reviewed 02/04/23 14:23: Blood Type O POSITIVE, Antibody Screen NEGATIVE, Crossmatch See Detail 02/04/23 14:23: Phosphorus 2.7, Magnesium 1.5 L 02/04/23 20:35: Lactic Acid 5.3 H* 02/04/23 22:35: Hgb 10.0 L, Hct 30.5 L 02/05/23 01:53: Hgb 10.1 L, Hct 30.4 L 02/05/23 06:35: WBC 10.3, RBC 3.17 L, Hgb 9.5 L, Hct 29.0 L, MCV 91.5, MCH 30.0, MCHC 32.8, RDW Std Deviation 48.4 H, RDW Coeff of Jose 14.6, Plt Count 77 L, MPV 11.6, Immature Gran % (Auto) 0.400, Neut % (Auto) 70.9 H, Lymph % (Auto) 15.8 L, [place] % (Auto) 12.4 H, Eos % (Auto) 0.1, Baso % (Auto) 0.4, Absolute Neuts (auto) 7.3, Absolute Lymphs (auto) 1.63, Nucleated RBC % 0, Platelet Estimate MOD 02/05/23 06:35: Sodium 142, Potassium 3.7, Chloride 109 H, Carbon Dioxide 26.0, Anion Gap 7, BUN 14, Creatinine 0.52 L, Estim Creat Clear Calc 161.28, Est GFR (MDRD) Af Amer 230, Est GFR (MDRD) Non-Af 190, BUN/Creatinine Ratio 27.1 H, Glucose 126 H, Calcium 7.9 L, Total Bilirubin 1.10 H, AST 88 H, ALT 34, Alkaline Phosphatase 99, Total Protein 6.4, Albumin 2.9 L, Globulin 3.5, Albumin/Globulin Ratio 0.8 L 02/05/23 17:48: Hgb 9.4 L Radiography Diagnostic Testing: Radiology Impression Abdomen Ultrasound 02/05/23 05:55 IMPRESSION: 1. No acute findings. 2. Cirrhosis, diffuse hepatic steatosis, and borderline hepatomegaly. Electronically Signed: Familia Gustafson MD at 12:34 EDT , Physical Exam Narrative General: Alert, appears slightly uncomfortable HEENT: Atraumatic, normocephalic Eyes: Anicteric, normal conjunctiva, extraocular movements grossly intact Neck: Supple Respiratory: Clear to auscultation bilaterally, normal respiratory effort Cardiovascular: Regular rate and rhythm GI: Soft, tender in the epigastric region Extremities: No edema Musculoskeletal: Moving all extremities Neuro: No overt focal neurological deficits Skin: No rashes appreciated Psych: Cooperative Assessment & Plan Assessment/Plan (1) Acute upper GI bleeding: (2) Anemia: (3) Cirrhosis: (4) Thrombocytopenia: (5) Coagulopathy: PLAN: Plan 29-year-old gentleman presented with upper GI bleed and was discovered to have grade 3-4 esophageal varices with active bleeding status post endoscopic banding with control of upper GI bleed. He has been on PPI drip, octreotide and has been getting ceftriaxone for variceal bleed. At this time he has decompensated cirrhosis because of GI bleed. He does not have any ascites that was seen on ultrasound today. His ultrasound did show cirrhosis as previously seen on his CT scan abdomen pelvis. There were no hepatic masses. He is sleepy but does not appear to be grossly encephalopathic. I will order biochemical work-up to see if there is any other etiology other than alcohol for his cirrhosis including looking for Polo's disease, autoimmune hepatitis, hemochromatosis, tuberculosis, sarcoidosis, amyloidosis, and other metabolic diseases. Continue current treatment. N.p.o. past midnight for possible repeat endoscopy tomorrow. Charges/Coding Visit Charges Inpatient E&M: 60188 Subs Hosp L3
[2023-02-05 18:13] LABS: Ferritin 99 ng/mL (26-388)
[2023-02-05] MEDS: Ensure Clear 120 ML Liquid PO ×2 (18:13→22:40)
[2023-02-05 18:41] LABS: Lactic Acid 1.3 mmol/L (0.4-1.9)
[2023-02-05 18:50] LABS: Erythrocyte Sedimentation Rate 4 mm/hr (0-20)
[2023-02-05 20:26] LABS: HIV - WCH Non-Reactive (Nonreactive)
[2023-02-05] MEDS: Lactulose 20 GM/30 ML UDC PO (22:39)
[2023-02-05] MEDS: rifAXIMin 550 MG Tablet PO (22:41)
[2023-02-05] MEDS: Ceftriaxone 1 GM/50 ML BAG IV (22:58)
[2023-02-05 23:09] LABS: Hemoglobin 9.1 g/dL (13.0-16.5)
[2023-02-06 03:45] VITALS: BP 116/78; PULSE 96; RESP 16; TEMP 37.3; O2SAT 99
--- NOTE | 2023-02-06 05:55 | EKG12_ITS ---
Test Reason : AM EKG Blood Pressure : / mmHG Vent. Rate : 096 BPM Atrial Rate : 096 BPM P-R Int : 136 ms QRS Dur : 116 ms QT Int : 370 ms P-R-T Axes : 040 009 054 degrees QTc Int : 467 ms Normal sinus rhythm Minimal voltage criteria for LVH, may be normal variant ( Giorgi product ) Borderline ECG No previous ECGs available Confirmed by ANAMIKA STARKS, ANSON ([id number]), content editor MALORIE RANDLE ([id number]) on 02/07/2023 9:28:09 AM Referred By: SIMI Confirmed By:ANSON WILLSON MD
[2023-02-06 06:22] LABS: Absolute Lymphocyte Count 2.24 X10^3/uL (0.83-4.51); Absolute Neutrophil Count 5.8 X10^3/uL (2.0-7.7); Basophil# 0.02 X10^3/uL; Basophil% 0.2 % (0-1); Eosinophil# 0.06 X10^3/uL; Eosinophils% 0.7 % (0-5); Hematocrit 27.3 % (40-54); Hemoglobin 9.1 g/dL (13.0-16.5); Lymphocyte # 2.24 X10^3/ul (0.83-4.51); Lymphocyte % 24.7 % (19-41); Mean Corp Hgb Conc 33.3 g/dL (32-36); Mean Corpuscular Hgb 30.5 pg (27.0-32.0); Mean Corpuscular Volume 91.6 fL (80-94); Mean Platelet Vol. 11.2 fl (6.2-12.0); Monocyte# 0.98 X10^3/uL; Monocyte% 10.8 % (0-10); NRBC Flagged by Analyzer 0 % (0-5); Neutrophil # 5.75 X10^3/uL (2.7-7.7); Neutrophil % 63.4 % (47-70); POSITIVE COUNT YES; Platelet Count 83 K/mm3 (150-450); RBC Distribution Width CV 14.6 % (11.6-14.6); RBC Distribution Width SD 48.9 fl (35.1-43.9); Red Blood Count 2.98 M/mm3 (4.6-6.2); White Blood Count 9.1 K/mm3 (4.4-11.0)
[2023-02-06 06:47] LABS: Partial Thromboplast Time 33.3 Seconds (24.1-36.2)
[2023-02-06 06:48] LABS: International Normalized Ratio 1.1; Prothrombin Time (Protime)PT. 14.5 SECONDS (11.7-14.9)
[2023-02-06 06:55] LABS: ALB/GLOB Ratio 0.8 RATIO (0.9-2.4); AST(SGOT) 87 U/L (15-37); Alanine Aminotransfer ALT/SGPT 34 U/L (16-61); Albumin, Serum 2.8 g/dL (3.2-5.0); Alkaline Phosphatase 103 U/L (45-117); Anion Gap 6 (5-15); BUN 9 mg/dL (7-18); BUN/Creat Ratio 20.5 RATIO (10-20); Calcium,Total 7.7 mg/dL (8.5-10.1); Chloride 110 mmol/L (98-107); Creatinine, Serum 0.44 mg/dL (0.70-1.30); EST Glomerular Filtration Rate 230 mL/min (>60); Est Glom Filt Rate - Afr Amer 278 mL/min (>60); Estimated Creatinine Clearance 190.61 ml/min; Globulin 3.6 g/dL (2.2-4.2); Glucose 88 mg/dL (74-106); Potassium 3.5 mmol/L (3.5-5.1); Protein, Total 6.4 g/dL (6.4-8.2); Sodium Level 139 mmol/L (136-145)
[2023-02-06 07:44] VITALS: O2SAT 98
[2023-02-06 09:19] VITALS: BP 115/69; PULSE 87; RESP 16; TEMP 37.1; O2SAT 99
--- NOTE | 2023-02-06 10:11 | PN.HOSP_ITS ---
Reason for Visit Reason for Visit: Diagnoses Anemia, unspecified (02/04/23) Coagulation defect, unspecified (02/04/23) Thrombocytopenia, unspecified (02/04/23) Unspecified cirrhosis of liver (02/04/23) Gastrointestinal hemorrhage, unspecified (02/04/23) Objective Data Objective Data Vital Signs: Vital Signs Temp Pulse Resp BP Pulse Ox O2 Del Method 98.7 F 87 16 115/69 99 Room Air 02/06/23 09:19 02/06/23 09:19 02/06/23 09:19 02/06/23 09:19 02/06/23 09:19 02/06/23 09:19 Oxygen Delivery Method Room Air Weight: 71.7 kg Body Mass Index (BMI) 27.1 Intake & Output: Intake and Output for Last 24 Hours 02/04/23 02/05/23 02/06/23 23:59 23:59 23:59 Intake Total 2851.25 / 2851.25 1712.88 / 1712.88 1460 / 1460 Output Total 1999 / 1999 900 / 900 Balance 2851.25 / 2851.25 -287.12 / -287.12 560 / 560 Lab / Micro Data Result Diagrams: 02/06/23 05:55 02/06/23 05:55 Labs: Laboratory Results - last 24 hr 02/04/23 14:23: Diff Path Review Reviewed 02/05/23 06:35: Ferritin 99, C-React Prot Ext Range 12.10 H 02/05/23 17:48: Hgb 9.4 L 02/05/23 17:48: ESR 4 02/05/23 18:07: Ammonia 63.0 H 02/05/23 18:07: HIV 1&2 Antibody Non-Reactive 02/05/23 18:07: Lactic Acid 1.3 02/05/23 22:56: Hgb 9.1 L 02/06/23 05:55: WBC 9.1, RBC 2.98 L, Hgb 9.1 L, Hct 27.3 L, MCV 91.6, MCH 30.5, MCHC 33.3, RDW Std Deviation 48.9 H, RDW Coeff of Jose 14.6, Plt Count 83 L, MPV 11.2, Immature Gran % (Auto) 0.200, Neut % (Auto) 63.4, Lymph % (Auto) 24.7, [place] % (Auto) 10.8 H, Eos % (Auto) 0.7, Baso % (Auto) 0.2, Absolute Neuts (auto) 5.8, Absolute Lymphs (auto) 2.24, Nucleated RBC % 0 02/06/23 05:55: PT 14.5, INR 1.1 02/06/23 05:55: Sodium 139, Potassium 3.5, Chloride 110 H, Carbon Dioxide 23.0, Anion Gap 6, BUN 9, Creatinine 0.44 L, Estim Creat Clear Calc 190.61, Est GFR (MDRD) Af Amer 278, Est GFR (MDRD) Non-Af 230, BUN/Creatinine Ratio 20.5 H, Glucose 88, Calcium 7.7 L, Total Bilirubin 1.00, AST 87 H, ALT 34, Alkaline Phosphatase 103, Total Protein 6.4, Albumin 2.8 L, Globulin 3.6, Albumin/Globulin Ratio 0.8 L 02/06/23 05:55: APTT 33.3 Radiography Diagnostic Testing: Radiology Impression Abdomen Ultrasound 02/05/23 05:55 IMPRESSION: 1. No acute findings. 2. Cirrhosis, diffuse hepatic steatosis, and borderline hepatomegaly. Electronically Signed: Familia Gustafson MD at 12:34 EDT ,
--- NOTE | 2023-02-06 11:40 | CASEMGMT ---
Patient does not have insurance. SW will utilize the prescription assistance program to help patient with his discharge meds. Margaret LOMAX
[2023-02-06] MEDS: Lactulose 20 GM/30 ML UDC 10 GM PO (12:14)
[2023-02-06] MEDS: rifAXIMin 550 MG Tablet PO (12:15)
--- NOTE | 2023-02-06 13:23 | DCINST_ITS ---
Discharge Instructions Diet Discharge Diet: Light diet - advance as tolerated Activity Discharge Activity: Return to Normal Activity Follow Up Care Test Results: Test results from this visit will be discussed in further detail at your follow- up appointment, if applicable. Discharge Plan Admission Admit Date/Time: 02/04/23 16:56 Primary Reason for Your Visit: Vomiting blood Attending Provider: Evelyn Hernández Primary Care Provider: Care Physician,No Primary Consulting Providers: Regis Stephens Instructions Patient Instructions: Cirrhosis of Liver Dc, ED Cirrhosis, ED Upper GI Bleeding (Stable) Additional Instructions / Restrictions: DISCHARGE INSTRUCTIONS PLEASE READ *Please take this with you to your next doctors appointment* -You have been started on several medications, please take these as prescribed -We will be very important for you to follow-up with the GI (stomach) In the office. Hospital follow-up appointment scheduled 02/21/2023 at 1:30 PM. If there are any questions please contact his office [phone] -If you have any bleeding, nausea vomiting, or abdominal pain please return to the emergency department -It is heavily advised that you avoid drinking alcohol (no drinking alcohol) or taking products with acetaminophen -Please call your primary care provider's office upon discharge to schedule a hospital follow up within 1 week. -For any concerning signs or symptoms please call 911 or proceed to the nearest emergency department Discharge Orders/Prescriptions Prescriptions: New lactulose 20 gram/30 mL Solution 10 g PO BID 30 Days Qty: 900 3RF nadolol 20 mg tablet 10 mg PO DAILY 30 Days Qty: 15 3RF pantoprazole 40 mg tablet,delayed release (DR/EC) 40 mg PO BID 30 Days Qty: 60 3RF Referrals / Follow Up: Regis Stephens DO [Med Staff - Active Staff] - 02/21/23 1:30 pm (Appointment is with Mable Miguel N.P.) Care Physician,No Primary [Primary Care Provider] - Disposition Disposition (needs filled in before D/C Order can be placed): Home, Self Care
--- NOTE | 2023-02-06 13:27 | DS.PCM_ITS ---
Providers Date of Admission: 02/04/23 Date of Discharge: 02/06/23 Primary Care Physician: No Primary Care Phys Reason For Visit: UPPER GI BLEED Diagnosis Discharge Diagnosis (1) Acute upper GI bleeding: Status: Acute Code(s): K92.2 - Gastrointestinal hemorrhage, unspecified (2) Anemia: Status: Acute Code(s): D64.9 - Anemia, unspecified (3) Cirrhosis: Status: Acute Code(s): K74.60 - Unspecified cirrhosis of liver (4) Thrombocytopenia: Status: Acute Code(s): D69.6 - Thrombocytopenia, unspecified (5) Coagulopathy: Status: Acute Code(s): D68.9 - Coagulation defect, unspecified Plan #Acute active upper GI bleed secondary to bleeding grade 2 esophageal varices status post banding -Had EGD 02/04/2023 that showed bleeding grade 2 esophageal varices which were in completely eradicated. Banding. There was red blood in the stomach at that time. -Discussed with GI, transitioned PPI to twice daily and DC'd octreotide drip -We will be very important that he has nadolol/variceal prophylaxis on an outpatient basis and will need to repeat EGDs and follow-up with GI #Liver cirrhosis -Seen on abdominal ultrasound, report 02/05: cirrhosis, diffuse hepatic steatosis , borderline hepatomegaly -We will check hepatitis panel, additional labs pending -Strongly advised alcohol cessation moving forward Medications at Discharge Home Medications lactulose 20 gram/30 mL oral solution 10 g (15 mL) PO BID 30 days #900 mL 02/06/23 nadolol 20 mg tablet 10 mg PO DAILY 30 days #15 tabs 02/06/23 pantoprazole 40 mg tablet,delayed release 40 mg PO BID 30 days #60 tabs 02/06/23 Hospital Course Procedures - (EGD w/ banding) Summary of Care Provided Minutes Spent on Discharge: 36 Hospital Course: 37-year-old American male with history of alcohol use presented 02/04/2023 with vomiting blood x1 day. He had multiple episodes of emesis with moderate amount of coffee-ground emesis. Patient speaks [place] when she is not available with her translators or even Google translate and closest to Swedish, so communication possible but difficult at times. Per report he had drank a fair amount for 2 days but usually drinks 3-4 times a week about 3-4 beers. In the ED he was tachycardic with a heart rate of 145, hemoglobin 9.8 and platelets 187. 2 units packed red blood cells ordered and he was taken urgently to endoscopy. Upper endoscopy demonstrated bleeding grade 2 esophageal varices which were incompletely eradicated and banded. He was on IV PPI and IV octreo tide and given fluids and admitted to the hospital. He did improve and hemoglobin stabilized, he was taken off octreotide drip and continued on Protonix. He had right upper quadrant ultrasound which showed cirrhosis, diffuse hepatic steatosis and borderline hepatomegaly. Hepatitis panel and additional labs ordered for further evaluation. Did have slightly elevated ammonia and was started on lactulose. Initially there had been consideration of repeat EGD however given stability of labs and hemoglobin it was felt this can be done on an outpatient basis. Given patient's difficulty with communication he had a GI appointment scheduled prior to discharge and meds to bed. Patient had reported improvement in abdominal pain with minimal residual pain on day of discharge. Discussed with raysa NIELSEN for DC on nadolol, lactulose, PPI. Ideally would be able to be on rifaximin as well however this is cost prohibitive at this time. Prior to discharge appointment with the [facility] also obtained. Discharge instructions as followed: DISCHARGE INSTRUCTIONS PLEASE READ *Please take this with you to your next doctors appointment* -You have been started on several medications, please take these as prescribed -We will be very important for you to follow-up with the GI (stomach) DrAlma Rosa In the office.? Hospital follow-up appointment scheduled 02/21/2023 at 1:30 PM.? If there are any questions please contact his office?[phone] -If you have any bleeding, nausea vomiting, or abdominal pain please return to the emergency department -It is heavily advised that you avoid drinking alcohol?(no drinking alcohol)?or taking products with acetaminophen -Please call your primary care provider's office upon discharge to schedule a hospital follow up within 1 week. -For any concerning signs or symptoms please call 911 or proceed to the nearest emergency department Physical Exam Narrative General: Alert, not acutely distressed HEENT: Atraumatic, normocephalic Eyes: Anicteric, normal conjunctiva, extraocular movements grossly intact Neck: Supple Respiratory: Clear to auscultation bilaterally, normal respiratory effort Cardiovascular: Regular rate and rhythm GI: Soft, no significant tenderness, no rebound, guarding, rigidity, nondistended Extremities: No edema Musculoskeletal: Moving all extremities Neuro: No overt focal neurological deficits Skin: No rashes appreciated Psych: Cooperative Weight / BMI Weight Weight: 71.7 kg Body Mass Index (BMI) 27.1 ABG / Lab / Microbiology Data Result Diagrams: 02/06/23 05:55 02/06/23 05:55 Laboratory: Laboratory Results - last 24 hr 02/05/23 06:35: Ferritin 99, C-React Prot Ext Range 12.10 H 02/05/23 17:48: Hgb 9.4 L 02/05/23 17:48: ESR 4 02/05/23 18:07: Ammonia 63.0 H 02/05/23 18:07: HIV 1&2 Antibody Non-Reactive 02/05/23 18:07: Lactic Acid 1.3 02/05/23 22:56: Hgb 9.1 L 02/06/23 05:55: WBC 9.1, RBC 2.98 L, Hgb 9.1 L, Hct 27.3 L, MCV 91.6, MCH 30.5, MCHC 33.3, RDW Std Deviation 48.9 H, RDW Coeff of Jose 14.6, Plt Count 83 L, MPV 11.2, Immature Gran % (Auto) 0.200, Neut % (Auto) 63.4, Lymph % (Auto) 24.7, [place] % (Auto) 10.8 H, Eos % (Auto) 0.7, Baso % (Auto) 0.2, Absolute Neuts (auto) 5.8, Absolute Lymphs (auto) 2.24, Nucleated RBC % 0 02/06/23 05:55: PT 14.5, INR 1.1 02/06/23 05:55: Sodium 139, Potassium 3.5, Chloride 110 H, Carbon Dioxide 23.0, Anion Gap 6, BUN 9, Creatinine 0.44 L, Estim Creat Clear Calc 190.61, Est GFR (MDRD) Af Amer 278, Est GFR (MDRD) Non-Af 230, BUN/Creatinine Ratio 20.5 H, Glucose 88, Calcium 7.7 L, Total Bilirubin 1.00, AST 87 H, ALT 34, Alkaline Phosphatase 103, Total Protein 6.4, Albumin 2.8 L, Globulin 3.6, Albumin/G lobulin Ratio 0.8 L 02/06/23 05:55: APTT 33.3 D/C Instructions Discharge Diet: Light diet - advance as tolerated Meaningful Use Info Meaningful Use Diagnoses (Choose all that apply): None applicable Discharge Plan Admission Admit Date/Time: 02/04/23 16:56 Primary Reason for Your Visit: Vomiting blood Attending Provider: Evelyn Hernández Primary Care Provider: Care Physician,No Primary Consulting Providers: Regis Stephens Instructions Patient Instructions: Cirrhosis of Liver Dc, ED Cirrhosis, ED Upper GI Bleeding (Stable) Additional Instructions / Restrictions: DISCHARGE INSTRUCTIONS PLEASE READ *Please take this with you to your next doctors appointment* -You have been started on several medications, please take these as prescribed -We will be very important for you to follow-up with the GI (stomach) In the office. Hospital follow-up appointment scheduled 02/21/2023 at 1:30 PM. If there are any questions please contact his office [phone] -If you have any bleeding, nausea vomiting, or abdominal pain please return to the emergency department -It is heavily advised that you avoid drinking alcohol (no drinking alcohol) or taking products with acetaminophen -Please call your primary care provider's office upon discharge to schedule a hospital follow up within 1 week. -For any concerning signs or symptoms please call 911 or proceed to the nearest emergency department Discharge Orders/Prescriptions Prescriptions: New lactulose 20 gram/30 mL Solution 10 g PO BID 30 Days Qty: 900 3RF nadolol 20 mg tablet 10 mg PO DAILY 30 Days Qty: 15 3RF pantoprazole 40 mg tablet,delayed release (DR/EC) 40 mg PO BID 30 Days Qty: 60 3RF Referrals / Follow Up: Regis Stephens DO [Med Staff - Active Staff] - 02/21/23 1:30 pm (Appointment is with Mable Miguel N.P.) [facility] [Non-Staff] - 02/13/23 2:30 pm Care Physician,No Primary [Primary Care Provider] - Disposition Disposition (needs filled in before D/C Order can be placed): Home, Self Care Charges/Coding Visit Charges Inpatient E&M: 56749 Disch Hosp >30min
[2023-02-06 15:00] VITALS: BP 137/88; PULSE 90; RESP 16; TEMP 36.9; O2SAT 99
[2023-02-07 16:10] LABS: Alpha Antitrypsin Serum 175 mg/dL (95-164); Anti-Centromere B Ab <0.2 AI (0.0-0.9); Anti-Chromatin <0.2 AI (0.0-0.9); Anti-Jo <0.2 AI (0.0-0.9); Anti-Mitochondrial AB <20.0 Units (0.0-20.0); Anti-Scleroderma-70 AB <0.2 AI (0.0-0.9); Anti-dsDNA Ab 3 IU/mL (0-9); RNP Ab 0.3 AI (0.0-0.9); SJOGREN'S Anti-SS-A test < 0.2 AI (0.0-0.9); SJOGREN'S Anti-SS-B test < 0.2 AI (0.0-0.9); Smith Ab <0.2 AI (0.0-0.9)
[2023-02-08 19:07] LABS: AFP, Tumor Marker 6.9 ng/mL (0.0-6.9); Albumin 3.3 g/dL (2.9-4.4); Alpha-1-Globulins 0.3 g/dL (0.0-0.4); Alpha-2-Globulins 0.5 g/dL (0.4-1.0); Anti-Smooth Muscle ABS 7 Units (0-19); Ceruloplasmin 20.9 mg/dL (16.0-31.0); Copper, Serum or Plasma 97 ug/dL (69-132); Cytoplasmic Ab (C-ANCA) <1:20 titer (Neg:<1:20); Gamma Globulin 1.1 g/dL (0.4-1.8); HEPATITIS B SURFACE AG Negative (Negative); Haptoglobin 140 mg/dL (17-317); Hep C Antibodies Non Reactive (Non Reactive); Hepatitis A IgM Antibody Negative (Negative); Hepatitis B Core AB IgM Negative (Negative); Immunoglobulin A 389 mg/dL (90-386); Immunoglobulin G 1094 mg/dL (603-1613); Immunoglobulin M 110 mg/dL (20-172); PROEL- TOTAL PROTEIN 6.2 g/dL (6.0-8.5); Perinuclear Ab (P-ANCA) <1:20 titer (Neg:<1:20); QNTFERON TB Mitogen Value > 10.00 IU/mL (.); QNTFERON TB Nil Value 0.11 IU/mL (.); QNTFERON TB1+ Ag Value 0.09 IU/mL (.); QNTFERON TB2+ Ag Value 0.14 IU/mL (.); QNTIFERON TB Positive Criteria Negative (Negative)
== END 2023-02-06 16:11 | disposition home or self-care (01) | DRG 369 ==
LOC: ED 16:37 → SDC 16:39 → ACINP 16:40 → SDC 17:18 → PCU 18:23
PROVIDERS: Anesthesiology; Internal Medicine Gastroenterology; Admitting Provider Internal Medicine; Emergency Provider Emergency Medicine; Visit Provider Internal Medicine
PROC: 0DJ08ZZ Inspection of Upper Intestinal Tract, Via Natural or Artificial Opening Endoscopic (ICD-10-PCS; CPT 43235; principal; 2023-02-04 18:30)
DX: I85.01 Esophageal varices with bleeding (principal); E87.20 Acidosis, unspecified; D68.9 Coagulation defect, unspecified; K76.6 Portal hypertension; D62 Acute posthemorrhagic anemia; D69.6 Thrombocytopenia, unspecified; K70.30 Alcoholic cirrhosis of liver without ascites; K70.10 Alcoholic hepatitis without ascites; K76.0 Fatty (change of) liver, not elsewhere classified; D64.9 Anemia, unspecified
CPT/HCPCS: 36415; 71260; 74177; 76705; 80053; 80074; 82103; 82105; 82140; 82390; 82525; 82728; 82784; 83010; 83516; 83605; 83690; 83735; 84100; 84165; 85014; 85018; 85025; 85610; 85652; 85730; 86140; 86225; 86235; 86256; 86334; 86480; 86703; 86850; 86900; 86901; 86920; 86922; 93005; 99283; J7030; J7040; J7120; P9016; Q9967; A4216; J2405

== ENCOUNTER 2023-03-10 01:09 | Emergency (ER) | payer SELFPAY ==
[2023-03-10 01:12] VITALS: BP 136/87; PULSE 99; RESP 19; TEMP 36.4; O2SAT 99; BMI 25.7
--- NOTE | 2023-03-10 01:34 | EDS_ITS ---
HPI History of Present Illness Chief Complaint: Abd Pain Informant: patient and family Limited: language barrier Narrative Narrative: Patient is a 37-year-old male who is seen 1 month ago secondary to abdominal pain and hematemesis and found to have esophageal varices and cirrhosis. At that time chart review reveals he underwent band ligation of esophageal varices. Patient states that in the last day he has had generalized abdominal pain. He states that he has been nauseous but there is been no bouts of vomiting and he denies any recent hematemesis. He states he will occasionally have diarrhea but this is mainly after he takes his lactulose. He denies any trauma or known sick contacts but with his recent admission a month ago secondary to GI bleed and now return of pain he is concerned and presents for evaluation. PFSH PFS Medical History Alcohol abuse Non-smoker Home Medications lactulose 20 gram/30 mL oral solution 10 g (15 mL) PO BID 30 days #900 mL 02/06/23 [Rx Last Taken Unknown] nadolol 20 mg tablet 10 mg PO DAILY 30 days #15 tabs 02/06/23 [Rx Last Taken Unknown] pantoprazole 40 mg tablet,delayed release 40 mg PO BID 30 days #60 tabs 02/06/23 [Rx Last Taken Unknown] lactulose 10 gram/15 mL oral solution 15 ml PO BID 30 days #900 mL 03/10/23 [Rx Last Taken Unknown] nadolol 20 mg tablet 10 mg PO DAILY 30 days #15 tabs 03/10/23 [Rx Last Taken Unknown] pantoprazole 40 mg tablet,delayed release 40 mg PO BID 30 days #60 tabs 03/10/23 [Rx Last Taken Unknown] sucralfate 1 gram tablet (Carafate) 1 g PO TID 30 days #90 tabs 03/10/23 [Rx Last Taken Unknown] Allergy/AdvReac Type Severity Reaction Status Date / Time No Known Allergies Allergy Verified 03/10/23 01:11 Family History no significant family his Surgical History no surgical history Social History Smoking Status: Never smoker ROS ROS ED Constitutional Constitutional ED: Denies chills or fever(s) Eyes Eyes: Denies change in vision ENT ENT ED: Denies sore throat Cardiovascular Cardiovascular: Denies chest pain Respiratory/Chest Respiratory/Chest: Denies cough or dyspnea Gastrointestinal Gastrointestinal: Reports abdominal pain, diarrhea and nausea; Denies melena or vomiting Genitourinary Genitourinary ED: Denies dysuria or hematuria Musculoskeletal Musculoskeletal: Denies myalgias Integumentary Denies rash Neurologic Neurologic: Denies headache(s), paresthesias or weakness Hematologic/Lymphatic Hematologic/Lymphatic: Denies easy bleeding or easy bruising EXAM Physical Exam Const Vital Signs: 03/10/23 01:12 Temperature 97.6 F L Temperature Source Temporal Pulse Rate 99 Respiratory Rate 19 H Blood Pressure 136/87 H Blood Pressure Mean 103 Pulse Ox 99 Positive well nourished and well developed General Appearance ED: well developed HEENT Reports moist mucous membranes HEENT Narrative: No signs of infection in the posterior pharynx Eyes PERRL and EOMs intact bilaterally General Eye ED: Negative for scleral icterus Neck supple Neck Narrative: No crepitance noted Chest Wall palpation of chest normal Resp normal respiratory effort and clear to auscultation bilaterally Cardio regular rate and regular rhythm Rate: other Other Details: Radial pulses are plus 2 out of 4 bilaterally are equal and symmetric GI non-distended GI Narrative: Mild pain with palpation in the upper abdomen diffusely without voluntary guarding or rigidity. No pulsatile mass or fluid wave noted. No obvious changes to suggest spontaneous bacterial peritonitis Auscultation: normoactive bowel sounds Palpation: soft Back/Spine no CVA tenderness Extremity normal to inspection Neuro oriented x3 and CN's II-XII intact bilaterally Sensorium / Orientation: alert Psych mental status grossly normal Skin no rashes or lesions noted General Skin Exam: Negative for jaundice MDM MDM Lab Data Labs: Laboratory Results - last 24 hr 03/10/23 03/10/23 03/10/23 01:25 01:25 01:25 WBC 12.5 H RBC 4.05 L Hgb 10.5 L Hct 32.2 L MCV 79.5 L MCH 25.9 L MCHC 32.6 RDW Std Deviation 50.7 H RDW Coeff of Jose 17.6 H Plt Count 178 MPV 9.9 Immature Gran % (Auto) 0.200 Neut % (Auto) 52.2 Lymph % (Auto) 38.5 [place] % (Auto) 8.5 Eos % (Auto) 0.2 Baso % (Auto) 0.4 Absolute Neuts (auto) 6.6 Absolute Lymphs (auto) 4.82 H Nucleated RBC % 0 PT 14.5 INR 1.1 APTT 33.4 Sodium 142 Potassium 3.3 L Chloride 106 Carbon Dioxide 27.0 Anion Gap 9 BUN 2 L Creatinine 0.53 L Estim Creat Clear Calc 158.24 Est GFR (MDRD) Af Amer 221 Est GFR (MDRD) Non-Af 183 BUN/Creatinine Ratio 3.7 L Glucose 118 H Lactic Acid Calcium 8.6 Total Bilirubin 0.50 Direct Bilirubin 0.21 AST 59 H ALT 35 Alkaline Phosphatase 155 H Total Protein 8.3 H Albumin 3.6 Globulin 4.7 H Lipase 56 Ethyl Alcohol 03/10/23 03/10/23 01:25 01:25 WBC RBC Hgb Hct MCV MCH MCHC RDW Std Deviation RDW Coeff of Jose Plt Count MPV Immature Gran % (Auto) Neut % (Auto) Lymph % (Auto) [place] % (Auto) Eos % (Auto) Baso % (Auto) Absolute Neuts (auto) Absolute Lymphs (auto) Nucleated RBC % PT INR APTT Sodium Potassium Chloride Carbon Dioxide Anion Gap BUN Creatinine Estim Creat Clear Calc Est GFR (MDRD) Af Amer Est GFR (MDRD) Non-Af BUN/Creatinine Ratio Glucose Lactic Acid 1.3 Calcium Total Bilirubin Direct Bilirubin AST ALT Alkaline Phosphatase Total Protein Albumin Globulin Lipase Ethyl Alcohol 368.0 H* Radiography Diagnostic Testing: Clinical Impression(s) from Imaging Studies Acute Abdomen Series 03/10/23 02:05 IMPRESSION: Negative chest and abdominal series. Electronically Signed: Eduardo Escobar MD at 2:49 EDT Reading Location ID and State: [facility] / [place] Tel , Service support , Discharge Plan Triage Chief Complaint: Abd Pain ED Provider: Aly Tinsley Dx/Rx/DC Orders Clinical Impression: Acute alcoholic gastritis, Cirrhosis, Alcohol abuse Instructions: Treating Gastritis, ED Gastritis (Adult) Prescriptions: New lactulose 10 gram/15 mL solution 15 ml PO BID 30 Days Qty: 900 0RF nadolol 20 mg tablet 10 mg PO DAILY 30 Days Qty: 15 0RF pantoprazole 40 mg tablet,delayed release (DR/EC) 40 mg PO BID 30 Days Qty: 60 0RF sucralfate [Carafate] 1 gram tablet 1 g PO TID 30 Days Qty: 90 0RF No Action lactulose 20 gram/30 mL Solution 10 g PO BID 30 Days Qty: 900 3RF nadolol 20 mg tablet 10 mg PO DAILY 30 Days Qty: 15 3RF pantoprazole 40 mg tablet,delayed release (DR/EC) 40 mg PO BID 30 Days Qty: 60 3RF Primary Care Provider: Care Physician,No Primary Referrals: Friend,Regis, DO [Med Staff - Active Staff] - Care Physician,No Primary [Primary Care Provider] - Disposition Disposition: Home, Self Care
[2023-03-10 01:38] LABS: Absolute Lymphocyte Count 4.82 X10^3/uL (0.83-4.51); Absolute Neutrophil Count 6.6 X10^3/uL (2.0-7.7); Basophil# 0.05 X10^3/uL; Basophil% 0.4 % (0-1); Eosinophil# 0.03 X10^3/uL; Eosinophils% 0.2 % (0-5); Hematocrit 32.2 % (40-54); Hemoglobin 10.5 g/dL (13.0-16.5); Lymphocyte # 4.82 X10^3/ul (0.83-4.51); Lymphocyte % 38.5 % (19-41); Mean Corp Hgb Conc 32.6 g/dL (32-36); Mean Corpuscular Hgb 25.9 pg (27.0-32.0); Mean Corpuscular Volume 79.5 fL (80-94); Mean Platelet Vol. 9.9 fl (6.2-12.0); Monocyte# 1.06 X10^3/uL; Monocyte% 8.5 % (0-10); NRBC Flagged by Analyzer 0 % (0-5); Neutrophil # 6.55 X10^3/uL (2.7-7.7); Neutrophil % 52.2 % (47-70); Platelet Count 178 K/mm3 (150-450); RBC Distribution Width CV 17.6 % (11.6-14.6); RBC Distribution Width SD 50.7 fl (35.1-43.9); Red Blood Count 4.05 M/mm3 (4.6-6.2); White Blood Count 12.5 K/mm3 (4.4-11.0)
[2023-03-10] MEDS: 0.9% Normal Saline 1,000 ML 999 ML IV (01:38)
[2023-03-10] MEDS: Morphine 4 MG/ML Syringe IV (01:38)
[2023-03-10] MEDS: Ondansetron 4 MG/2 ML Vial IV (01:38)
[2023-03-10 01:52] LABS: AST(SGOT) 59 U/L (15-37); Alanine Aminotransfer ALT/SGPT 35 U/L (16-61); Albumin, Serum 3.6 g/dL (3.2-5.0); Alkaline Phosphatase 155 U/L (45-117); Anion Gap 9 (5-15); BUN 2 mg/dL (7-18); BUN/Creat Ratio 3.7 RATIO (10-20); Bilirubin, Direct 0.21 mg/dL (0.00-0.30); Calcium,Total 8.6 mg/dL (8.5-10.1); Chloride 106 mmol/L (98-107); Creatinine, Serum 0.53 mg/dL (0.70-1.30); EST Glomerular Filtration Rate 183 mL/min (>60); Est Glom Filt Rate - Afr Amer 221 mL/min (>60); Estimated Creatinine Clearance 158.24 ml/min; Globulin 4.7 g/dL (2.2-4.2); Glucose 118 mg/dL (74-106); Lipase 56 U/L (13-75); Potassium 3.3 mmol/L (3.5-5.1); Protein, Total 8.3 g/dL (6.4-8.2); Sodium Level 142 mmol/L (136-145)
[2023-03-10 01:59] LABS: Lactic Acid 1.3 mmol/L (0.4-1.9)
[2023-03-10 02:01] LABS: International Normalized Ratio 1.1; Prothrombin Time (Protime)PT. 14.5 SECONDS (11.7-14.9)
[2023-03-10 02:02] LABS: Partial Thromboplast Time 33.4 Seconds (24.1-36.2)
--- NOTE | 2023-03-10 02:05 | RAD_ITS ---
EXAM: XR ABDOMEN, 2 VIEWS AND XR CHEST, 1 VIEW CLINICAL INDICATION: abd pain TECHNIQUE: Frontal view of the chest, frontal view of the abdomen/pelvis and upright or decubitus view of the abdomen. COMPARISON: No relevant prior studies available. FINDINGS: CHEST: LUNGS AND PLEURAL SPACES: Unremarkable. No consolidation or edema. No pneumothorax. No effusion. HEART: Unremarkable. Cardiac silhouette not enlarged. MEDIASTINUM: Central airways and mediastinal contour are unremarkable. ABDOMEN: INTRAPERITONEAL SPACE: No free air. GASTROINTESTINAL TRACT: Unremarkable. Non-obstructive. No bowel or stomach distention. ORGANS: Unremarkable as visualized. No organomegaly. No abnormal calcifications. TUBES, LINES AND DEVICES: None. BONES/JOINTS: No acute findings. SOFT TISSUES: No acute findings. RAD/Acute Abdomen Inc Chest IMPRESSION: Negative chest and abdominal series. Electronically Signed: Eduardo Escobar MD at 2:49 EDT ,
[2023-03-10] MEDS: Mag Hydrox/Al Hydrox/Simeth 30 ML UDC PO (02:20)
[2023-03-10 04:28] VITALS: BP 121/81; PULSE 98; RESP 16; O2SAT 94
== END 2023-03-10 04:34 | disposition home or self-care (01) ==
PROVIDERS: Emergency Provider Emergency Medicine; Visit Provider Emergency Medicine
DX: K74.60 Unspecified cirrhosis of liver (principal); I85.00 Esophageal varices without bleeding; R19.7 Diarrhea, unspecified; R10.84 Generalized abdominal pain; F10.10 Alcohol abuse, uncomplicated; K29.20 Alcoholic gastritis without bleeding; Z79.899 Other long term (current) drug therapy
CPT/HCPCS: 74022; 80048; 80076; 82077; 83605; 83690; 85025; 85610; 85730; 96365; 96375; 99284; J7030; A4216; J2405; J3490

== ENCOUNTER 2023-11-07 09:42 | Emergency (ER) | payer SELFPAY ==
[2023-11-07 09:43] VITALS: BP 151/91; PULSE 106; RESP 18; TEMP 35.9; O2SAT 96; BMI 26.2
[2023-11-07 11:04] VITALS: BP 120/93; PULSE 95; RESP 16; O2SAT 95
--- NOTE | 2023-11-07 11:34 | ED.VIS.GI ---
HPI HPI - GI History of Present Illness Chief Complaint: Abd Pain Informant: patient Abdominal Pain/Flank Pain Onset: Yesterday Context: Sudden Onset Timing: Waxes and wanes Quality: Burning Location: Diffuse Worsened by: Nothing Relieved by: Nothing Nausea/Vomiting/Emesis GI Symptom: Positive for Nausea and Vomiting Quality: Positive for Nonbilious; Negative for Blood streaks, Coffee ground or Hematemesis Diarrhea/Melena/Hematochezia GI Symptom: Negative for Diarrhea, Melena or Hematochezia Associated Symptoms Associated Symptoms: Negative for Dysuria, Frequency or Hematuria Narrative Narrative: Patient states it has been waxing and waning. Patient describes it as burning. Patient states it radiates into his back. Patient states that began yesterday. Patient states it began rather suddenly.Patient presents with abdominal pain the pain is over the middle of his abdomen. Patient states nothing makes it better nothing makes it worse. Patient states that every time he tries to drink water he vomits it back up. Patient denies any hematemesis or coffee-ground emesis. Patient denies any diarrhea, melena, or hematochezia. Patient denies any urinary complaints. PFSH PFSH Medical History Alcohol abuse Non-smoker Home Medications lactulose 20 gram/30 mL oral solution 10 g (15 mL) PO BID 30 days #900 mL 02/06/23 [Rx Last Taken Unknown] nadolol 20 mg tablet 10 mg (1/2 x 20 mg) PO DAILY 30 days #15 tabs 02/06/23 [Rx Last Taken Unknown] pantoprazole 40 mg tablet,delayed release 40 mg PO BID 30 days #60 tabs 02/06/23 [Rx Last Taken Unknown] lactulose 10 gram/15 mL oral solution 15 ml PO BID 30 days #900 mL 03/10/23 [Rx Last Taken Unknown] nadolol 20 mg tablet 10 mg (1/2 x 20 mg) PO DAILY 30 days #15 tabs 03/10/23 [Rx Last Taken Unknown] pantoprazole 40 mg tablet,delayed release 40 mg PO BID 30 days #60 tabs 03/10/23 [Rx Last Taken Unknown] sucralfate 1 gram tablet (Carafate) 1 g PO TID 30 days #90 tabs 03/10/23 [Rx Last Taken Unknown] amoxicillin 875 mg-potassium clavulanate 125 mg tablet 875 mg (0.875 x 875-125 mg) PO Q12H #20 TABLETS 11/07/23 [Rx Last Taken Unknown] Allergy/AdvReac Type Severity Reaction Status Date / Time No Known Allergies Allergy Verified 03/10/23 01:11 Family History no significant family his Social History Smoking Status: Never smoker ROS ROS ED Constitutional Constitutional ED: Reports fever(s) and subjective; Denies chills Eyes Eyes: Denies blurry vision or change in vision ENT ENT ED: Reports sore throat; Denies rhinorrhea Cardiovascular Cardiovascular: Denies chest pain or palpitations Respiratory/Chest Respiratory/Chest: Denies cough or dyspnea Gastrointestinal Gastrointestinal: Reports abdominal pain, nausea and vomiting; Denies diarrhea or melena Genitourinary Genitourinary ED: Denies dysuria or hematuria Musculoskeletal Musculoskeletal: Reports back pain and neck pain Integumentary Denies abscess or rash Neurologic Neurologic: Reports weakness; Denies headache(s) Allergic/Immunologic Allergic/Immunologic ED: Denies mouth swelling or urticaria EXAM Physical Exam Const Vital Signs: 11/07/23 09:43 11/07/23 11:04 11/07/23 13:00 Temperature 96.6 F L Temperature Source Temporal Pulse Rate 106 H 95 85 Respiratory Rate 18 16 18 Blood Pressure 151/91 H 120/93 H 114/80 Blood Pressure Mean 111 102 91 Pulse Ox 96 95 95 Oxygen Delivery Method Room Air Room Air Room Air Positive well nourished and well developed General Appearance ED: well developed and NAD HEENT Reports moist mucous membranes Neck supple and no JVD Resp normal respiratory effort and clear to auscultation bilaterally Cardio regular rate and regular rhythm GI non-distended Palpation: soft and tender epigastric, LLQ, RLQ, LUQ, RUQ, periumbilical and suprapubic; Negative for guarding or rebound tenderness present Extremity full ROM Neuro CN's II-XII intact bilaterally, moves all extremities and no sensory deficits noted Sensorium / Orientation: alert Motor Exam: strength 5/5 throughout Psych mental status grossly normal MDM MDM MDM Narrative Medical decision making narrative: Differential diagnosis includes gastritis, pancreatitis, bowel obstruction, perforation, colitis, ureteral calculus, pyelonephritis, and gastroenteritis. CBC will be obtained to assess for leukocytosis and anemia. Comprehensive metabolic profile will be obtained to assess for hepatic function, renal function, and electrolyte abnormality. Lipase will be obtained to assess for pancreatitis. CT scan of the abdomen pelvis will be obtained to assess for bowel obstruction, perforation, pancreatitis, and colitis. Lab Data Attestation: I reviewed the patient's lab results. Lab results narrative: CBC was reviewed. There is a slight anemia with a hemoglobin of 12.6. White blood cell count was normal. Platelets were normal. Comprehensive metabolic profile was reviewed and was essentially within normal limits. Alkaline phosphatase was slightly elevated at 141 and AST was slightly elevated at 88. Lipase was reviewed and was normal at 40. Urinalysis was reviewed. There is no evidence of urinary tract infection or hematuria. Labs: Laboratory Results - last 24 hr 11/07/23 10:45 WBC 4.7 RBC 5.40 Hgb 12.6 L Hct 40.1 MCV 74.3 L MCH 23.3 L MCHC 31.4 L RDW Std Deviation 59.1 H RDW Coeff of Jose 22.5 H Plt Count 211 MPV 10.3 Immature Gran % (Auto) 0.200 Neut % (Auto) 51.8 Lymph % (Auto) 38.1 [place] % (Auto) 7.3 Eos % (Auto) 0.9 Baso % (Auto) 1.7 H Absolute Neuts (auto) 2.4 Absolute Lymphs (auto) 1.77 Nucleated RBC % 0 Differential Comment SCANNED Anisocytosis 1+ Target Cells RARE Sodium 142 Potassium 3.6 Chloride 107 Carbon Dioxide 27.0 Anion Gap 8 BUN 4 L Creatinine 0.64 L Estim Creat Clear Calc 129.76 Est GFR (MDRD) Af Amer 179 Est GFR (MDRD) Non-Af 148 BUN/Creatinine Ratio 6.3 L Glucose 101 Calcium 9.0 Total Bilirubin 0.70 AST 88 H ALT 50 Alkaline Phosphatase 141 H Total Protein 7.9 Albumin 3.9 Globulin 4.0 Albumin/Globulin Ratio 1.0 Lipase 40 Urine Color Yellow Urine Clarity Clear Urine pH 8.0 Ur Specific [place] 1.010 Urine Protein Negative Urine Glucose (UA) Normal Urine Ketones Negative Urine Occult Blood Negative Urine Nitrite Negative Urine Bilirubin Negative Urine Urobilinogen Normal Ur Leukocyte Esterase Negative Urine RBC 0 SEEN Urine WBC 0-5 SEEN Ur Squamous Epith Cells 0 SEEN Urine Bacteria 0 SEEN Urine Mucus 0 SEEN Radiography Diagnostic Testing: Clinical Impression(s) from Imaging Studies Abdomen/Pelvis CT 11/07/23 11:40 IMPRESSION: Gallbladder distention. Distention of the urinary bladder. Circumferential wall thickening of the cecum. Localized inflammatory process should be ruled out. Electronically Signed: Jaskaran Jameson MD at 14:04 EST , CT scan of the abdomen and pelvis was obtained. There is some distention of the gallbladder. There is distention of the urinary bladder. There is some circumferential wall thickening of the cecum consistent with colitis. The appendix was visualized and was normal. This was interpreted by the radiologist and was also independently reviewed by myself. Treatment and Re-Evaluation :: Patient was given IV fluids, morphine, and Zofran. Patient feeling better on reevaluation. Patient was given a dose of Zosyn here. Patient was given a prescription for Augmentin. Patient was instructed to follow-up with his primary care physician in 5 to 7 days. Patient was instructed return if worse in any way. Patient understood and was agreeable with the plan. All questions were answered. Discharge Plan Triage Chief Complaint: Abd Pain ED Provider: Cruz Zamudio Dx/Rx/DC Orders Clinical Impression: Colitis, Abdominal pain Instructions: ED Understanding Colitis Prescriptions: New amoxicillin-pot clavulanate [amoxicillin-pot clavulanate] 875-125 mg tablet 875 mg PO Q12H Qty: 20 0RF No Action lactulose 20 gram/30 mL Solution 10 g PO BID 30 Days Qty: 900 3RF nadolol 20 mg tablet 10 mg PO DAILY 30 Days Qty: 15 3RF pantoprazole 40 mg tablet,delayed release (DR/EC) 40 mg PO BID 30 Days Qty: 60 3RF lactulose 10 gram/15 mL solution 15 ml PO BID 30 Days Qty: 900 0RF nadolol 20 mg tablet 10 mg PO DAILY 30 Days Qty: 15 0RF pantoprazole 40 mg tablet,delayed release (DR/EC) 40 mg PO BID 30 Days Qty: 60 0RF sucralfate [Carafate] 1 gram tablet 1 g PO TID 30 Days Qty: 90 0RF Primary Care Provider: Care Physician,No Primary Referrals: Valentine Pink [Non-Staff] - 3-5 Days Care Physician,No Primary [Primary Care Provider] - Disposition Disposition: Home, Self Care
--- NOTE | 2023-11-07 11:40 | CT_ITS ---
STUDY: CT ABDOMEN AND PELVIS WITH CONTRAST REASON FOR EXAM: Male, 38 years old. Abdominal pain -- IV PO Contrast RADIATION DOSAGE (If Supplied By Facility): CTDIvol = ( 10.73 ) mGy, DLP = ( 610.62 ) mGycm TECHNIQUE: Transaxial images were obtained from the dome of the diaphragm to the symphysis pubis with oral contrast. Oral and amp; IV Gastrografin and amp; 85mL Isovue-300 was administered. Sagittal and coronal images were reconstructed. Individualized dose optimization techniques were used for this CT. COMPARISON: None. FINDINGS: The visualized lung bases are unremarkable. The visualized portions of the heart are within normal limits. There is decreased attenuation of the liver consistent with steatosis. Borderline hepatomegaly. Distended gallbladder. Normal spleen. Normal pancreas. Normal bilateral adrenal glands. Normal right kidney. Normal left kidney. There is a small hiatal hernia. Normal small intestine. There is circumferential wall thickening of the cecum. Mild increased markings are seen in the surrounding peritoneal fat. Colitis should be ruled out. The appendix is visualized and appears normal. Normal abdominal aorta. Normal inferior vena cava. Normal retroperitoneum. Distended urinary bladder. Normal abdominal wall. Straightening of the lumbar lordosis. CT/Abdomen/Pelvis WITH Contrast IMPRESSION: Gallbladder distention. Distention of the urinary bladder. Circumferential wall thickening of the cecum. Localized inflammatory process should be ruled out. Electronically Signed: Jaskaran Jameson MD at 14:04 EST ,
[2023-11-07 11:52] LABS: Bacteria 0 SEEN /hpf (None Seen); Mucous, Urine 0 SEEN /hpf (<or=2+); Red Blood Cells-Urine 0 SEEN /hpf (0-5); Squamous Epithelial Cells - UA 0 SEEN /hpf (0-5)
[2023-11-07] MEDS: 0.9% Normal Saline (1000mL) 1,000 ML 1000 ML IV (11:53)
[2023-11-07] MEDS: Morphine 4 MG/ML Syringe IV (11:53)
[2023-11-07] MEDS: Ondansetron 4 MG/2 ML Vial IV (11:53)
[2023-11-07 11:59] LABS: Color, Urine Yellow (Yellow); Glucose, Dipstick Normal (Normal); Ketone-Dipstick Negative (Negative); Leukocyte Esterase-Dipstick Negative /ul (Negative); Nitrite-Dipstick Negative (Negative); Occult Blood-Urine Negative /ul (Negative); Protein-Dipstick Negative (Negative); Urine Bilirubin Dipstick Negative (Negative); Urine Clarity Clear (Clear); Urine Urobilinogen Normal (Normal)
[2023-11-07 12:05] LABS: White Blood Cells 0-5 SEEN /hpf (0-5)
[2023-11-07 13:00] VITALS: BP 114/80; PULSE 85; RESP 18; O2SAT 95
[2023-11-07 13:45] LABS: Absolute Lymphocyte Count 1.77 X10^3/uL (0.83-4.51); Absolute Neutrophil Count 2.4 X10^3/uL (2.0-7.7); Basophil# 0.08 X10^3/uL; Basophil% 1.7 % (0-1); Eosinophil# 0.04 X10^3/uL; Eosinophils% 0.9 % (0-5); Hematocrit 40.1 % (40-54); Hemoglobin 12.6 g/dL (13.0-16.5); Lymphocyte # 1.77 X10^3/ul (0.83-4.51); Lymphocyte % 38.1 % (19-41); Mean Corp Hgb Conc 31.4 g/dL (32-36); Mean Corpuscular Hgb 23.3 pg (27.0-32.0); Mean Corpuscular Volume 74.3 fL (80-94); Mean Platelet Vol. 10.3 fl (6.2-12.0); Monocyte# 0.34 X10^3/uL; Monocyte% 7.3 % (0-10); NRBC Flagged by Analyzer 0 % (0-5); Neutrophil # 2.41 X10^3/uL (2.7-7.7); Neutrophil % 51.8 % (47-70); POSITIVE MORPHOLOGY YES; Platelet Count 211 K/mm3 (150-450); RBC Distribution Width CV 22.5 % (11.6-14.6); RBC Distribution Width SD 59.1 fl (35.1-43.9); White Blood Count 4.7 K/mm3 (4.4-11.0)
[2023-11-07 13:57] LABS: AST(SGOT) 88 U/L (15-37); Alanine Aminotransfer ALT/SGPT 50 U/L (16-61); Albumin, Serum 3.9 g/dL (3.2-5.0); Alkaline Phosphatase 141 U/L (45-117); Anion Gap 8 (5-15); BUN 4 mg/dL (7-18); BUN/Creat Ratio 6.3 RATIO (10-20); Chloride 107 mmol/L (98-107); Creatinine, Serum 0.64 mg/dL (0.70-1.30); EST Glomerular Filtration Rate 148 mL/min (>60); Est Glom Filt Rate - Afr Amer 179 mL/min (>60); Estimated Creatinine Clearance 129.76 ml/min; Glucose 101 mg/dL (74-106); Lipase 40 U/L (13-75); Potassium 3.6 mmol/L (3.5-5.1); Protein, Total 7.9 g/dL (6.4-8.2); Sodium Level 142 mmol/L (136-145)
[2023-11-07 14:02] LABS: Differential Indicated SCAN CRITERIA MET
[2023-11-07 14:05] LABS: Anisocytosis 1+; Differential Comment SCANNED; Target Cells RARE
[2023-11-07 15:00] VITALS: PULSE 96; RESP 16; TEMP 36.9; O2SAT 100
[2023-11-07] MEDS: Piperacil/Tazobactam 4.5 GM in 0.9% Normal Saline (100mL MB+) 100 ML IV (15:12)
[2023-11-07 16:09] VITALS: BP 121/100; PULSE 92; RESP 16; TEMP 36.8; O2SAT 99
== END 2023-11-07 16:09 | disposition home or self-care (01) ==
PROVIDERS: Emergency Provider Emergency Medicine; Visit Provider Emergency Medicine
DX: K52.9 Noninfective gastroenteritis and colitis, unspecified (principal); R10.9 Unspecified abdominal pain
CPT/HCPCS: 74177; 80053; 81001; 83690; 85025; 96361; 96365; 96375; 99282; J7030; J7050; Q9967; A4216; J2405